=== PATIENT | male | born 1980 | race Caucasian/White ===

== ENCOUNTER 2020-02-22 09:30 | Inpatient (IN) | payer OTHER, SELFPAY ==
[~2020-02-22] VITALS: Ht 172.7 cm; Wt 87.1 kg
[2020-02-22 09:30] VITALS: BP_SYST 139
[2020-02-22 11:09] LABS: BASOPHILS % (AUTO) 0.3 % (0.0-2.0); HEMATOCRIT 41.6 % (36-54); HEMOGLOBIN 14.3 g/dL (14.0-18.0); LYMPHOCYTES # (AUTO) 0.2 K/uL (1.0-5.5); LYMPHOCYTES % (AUTO) 2.4 % (20.5-51.5); MEAN CORPUSCULAR HEMOGLOBIN 33 pg (27-31); MEAN CORPUSCULAR HGB CONC 35 % (32-36); MEAN CORPUSCULAR VOLUME 96 fL (79.0-98.0); MONOCYTES # (AUTO) 0.2 K/uL (0.0-1.0); MONOCYTES % (AUTO) 2.3 % (1.7-9.3); NEUTROPHILS # (AUTO) 7.8 K/uL (1.8-7.7); PLATELET COUNT (AUTO) 143 K/uL (130-430); RED BLOOD CELL COUNT(AUTO) 4.31 MIL/uL (4.2-6.2); RED CELL DISTRIBUTION WIDTH 12.9 % (9.0-15.0); WHITE BLOOD COUNT (AUTO) 8.2 K/uL (4.8-10.8)
[2020-02-22 11:20] LABS: BILIRUBIN,URINE NEGATIVE (NEGATIVE); BLOOD, URINE NEGATIVE (NEGATIVE); CLARITY/URINE CLEAR (CLEAR); COLOR,URINE YELLOW (YELLOW); GLUCOSE,URINE NEGATIVE (NEGATIVE); KETONES,URINE NEGATIVE (NEGATIVE); LEUKOCYTE ESTERASE ,URINE NEGATIVE (NEGATIVE); NITRITE, URINE NEGATIVE (NEGATIVE); PROTEIN URINE 1+ (NEGATIVE)
[2020-02-22 11:31] LABS: PROTHROMBIN TIME 9.9 SECS (9.5-12.5)
[2020-02-22 11:51] LABS: CALCIUM 8.4 mg/dL (8.4-11.0); CREATININE 1.06 mg/dL (0.55-1.30); POTASSIUM 3.1 mmol/L (3.5-5.1)
[2020-02-22 11:57] LABS: ALBUMIN 3.4 g/dL (3.4-4.8); TOTAL BILIRUBIN 0.6 mg/dL (0.0-1.0)
[2020-02-22 12:31] LABS: C-REACTIVE PROTEIN QUANT 33.2 mg/dL (0-0.5)
[2020-02-22 13:20] LABS: BACTERIA,URINE FEW /HPF (None Seen); RBC,URINE 0-3 /HPF (0-3); WBC,URINE 0-3 /HPF (0-3)
[2020-02-22] MEDS ORDERED: KCL 20 mEq in D5/0.45NS 1000mL 1,000 ML IV ONE (16:00)
[2020-02-22] MEDS ORDERED: CHOLECALCIFEROL (VITAMIN D3) 5,000 UNIT TABLET PO ONE (19:45)
[2020-02-22] MEDS ORDERED: PIPERACILLIN/TAZO 4.5GM/DEX-IS 100 ML IV ONE (19:45)
[2020-02-22] MEDS ORDERED: THIAMINE HCL 100 MG TABLET GT ONE (19:45)
[2020-02-22 20:00] VITALS: BP_SYST 152
[2020-02-22] MEDS ORDERED: THIAMINE HCL 100 MG TABLET PO ONE (20:00)
[2020-02-22] MEDS ORDERED: ENOXAPARIN SODIUM 40 MG/0.4 ML SYRINGE SUBCUT SCH (21:00)
[2020-02-22] MEDS: KCL 20 mEq in NS 1000 mL 1,000 ML IV SCH (21:20)
[2020-02-22] MEDS: ASCORBIC ACID 500 MG TABLET PO SCH (21:21)
[2020-02-22] MEDS: DEXAMETHASONE SOD PHOSPHATE 10 MG/ML VIAL IVP SCH (21:22)
[2020-02-22] MEDS: ACETAMINOPHEN 325 MG TABLET PO PRN (21:35)
[2020-02-22 21:47] VITALS: BP_SYST 152
[2020-02-23] VITALS: BP_SYST 140
[2020-02-23] MEDS ORDERED: PIPERACILLIN/TAZO 4.5GM/DEX-IS 100 ML IV SCH (06:00)
[2020-02-23] MEDS: KCL 20 mEq in NS 1000 mL 1,000 ML IV SCH (06:30)
[2020-02-23 07:12] LABS: BASOPHILS % (AUTO) 0.1 % (0.0-2.0); HEMOGLOBIN 13.8 g/dL (14.0-18.0); LYMPHOCYTES # (AUTO) 0.3 K/uL (1.0-5.5); LYMPHOCYTES % (AUTO) 6.3 % (20.5-51.5); MEAN CORPUSCULAR HEMOGLOBIN 33 pg (27-31); MEAN CORPUSCULAR HGB CONC 35 % (32-36); MEAN CORPUSCULAR VOLUME 96 fL (79.0-98.0); MONOCYTES # (AUTO) 0.2 K/uL (0.0-1.0); MONOCYTES % (AUTO) 4.7 % (1.7-9.3); NEUTROPHILS # (AUTO) 4.6 K/uL (1.8-7.7); NEUTROPHILS % (AUTO) 88.9 % (40.0-70.0); PLATELET COUNT (AUTO) 151 K/uL (130-430); RED BLOOD CELL COUNT(AUTO) 4.18 MIL/uL (4.2-6.2); RED CELL DISTRIBUTION WIDTH 12.8 % (9.0-15.0); WHITE BLOOD COUNT (AUTO) 5.1 K/uL (4.8-10.8)
[2020-02-23 08:00] VITALS: BP_SYST 155
[2020-02-23 08:15] LABS: CALCIUM 8.6 mg/dL (8.4-11.0); CREATININE 0.72 mg/dL (0.55-1.30); POTASSIUM 3.9 mmol/L (3.5-5.1)
[2020-02-23] MEDS: THIAMINE HCL 100 MG TABLET PO SCH (08:37)
[2020-02-23] MEDS: CHOLECALCIFEROL (VITAMIN D3) 5,000 UNIT TABLET PO SCH (08:38)
[2020-02-23] MEDS: ASCORBIC ACID 500 MG TABLET PO SCH ×2 (08:38→21:18)
[2020-02-23] MEDS: ACETAMINOPHEN 325 MG TABLET PO PRN ×2 (08:52→21:31)
[2020-02-23] MEDS ORDERED: THIAMINE HCL 100 MG TABLET GT SCH (09:00)
[2020-02-23 12:00] VITALS: BP_SYST 146
[2020-02-23] MEDS ORDERED: ALBUTEROL MDI INHALATION 8 GM INH INH PRN (14:30)
[2020-02-23 16:00] VITALS: BP_SYST 150
[2020-02-23] MEDS ORDERED: ONDANSETRON HCL 4 MG/2 ML VIAL IVP PRN (19:30)
[2020-02-23 20:00] VITALS: BP_SYST 149
[2020-02-23] MEDS: DEXAMETHASONE SOD PHOSPHATE 10 MG/ML VIAL IVP SCH (21:19)
[2020-02-23] MEDS: DOXYCYCLINE HYCLATE 100 MG CAPSULE PO SCH (21:19)
[2020-02-23] MEDS: ENOXAPARIN SODIUM 40 MG/0.4 ML SYRINGE SUBCUT SCH (21:27)
[2020-02-23] MEDS: cefTRIAXone 1 GM in D5W 50 ML IV SCH (21:34)
[2020-02-24] VITALS: BP_SYST 148
[2020-02-24] MEDS: KCL 20 mEq in NS 1000 mL 1,000 ML IV SCH ×4 (01:49→23:05)
[2020-02-24] MEDS: ACETAMINOPHEN 325 MG TABLET PO PRN ×3 (02:30→20:56)
[2020-02-24] MEDS: THIAMINE HCL 100 MG TABLET PO SCH (08:16)
[2020-02-24] MEDS: CHOLECALCIFEROL (VITAMIN D3) 5,000 UNIT TABLET PO SCH (08:17)
[2020-02-24] MEDS: ASCORBIC ACID 500 MG TABLET PO SCH ×2 (08:18→20:12)
[2020-02-24] MEDS: ENOXAPARIN SODIUM 40 MG/0.4 ML SYRINGE SUBCUT SCH ×2 (08:19→20:14)
[2020-02-24] MEDS: DOXYCYCLINE HYCLATE 100 MG CAPSULE PO SCH ×2 (08:29→20:11)
[2020-02-24 08:43] VITALS: BP_SYST 142
[2020-02-24 08:43] LABS: BASOPHILS % (AUTO) 0.1 % (0.0-2.0); HEMATOCRIT 42.7 % (36-54); HEMOGLOBIN 14.8 g/dL (14.0-18.0); LYMPHOCYTES # (AUTO) 0.3 K/uL (1.0-5.5); LYMPHOCYTES % (AUTO) 3.6 % (20.5-51.5); MEAN CORPUSCULAR HEMOGLOBIN 33 pg (27-31); MEAN CORPUSCULAR HGB CONC 35 % (32-36); MEAN CORPUSCULAR VOLUME 95 fL (79.0-98.0); MONOCYTES # (AUTO) 0.6 K/uL (0.0-1.0); MONOCYTES % (AUTO) 6.6 % (1.7-9.3); NEUTROPHILS # (AUTO) 8.1 K/uL (1.8-7.7); NEUTROPHILS % (AUTO) 89.7 % (40.0-70.0); PLATELET COUNT (AUTO) 168 K/uL (130-430); RED BLOOD CELL COUNT(AUTO) 4.47 MIL/uL (4.2-6.2); RED CELL DISTRIBUTION WIDTH 12.5 % (9.0-15.0)
[2020-02-24 09:34] LABS: ALBUMIN 2.6 g/dL (3.4-4.8); BILIRUBIN,DIRECT 0.2 mg/dL (0.0-0.3); CALCIUM 8.7 mg/dL (8.4-11.0); CREATININE 0.74 mg/dL (0.55-1.30); POTASSIUM 3.9 mmol/L (3.5-5.1); TOTAL BILIRUBIN 0.3 mg/dL (0.0-1.0)
[2020-02-24 10:32] LABS: C-REACTIVE PROTEIN QUANT 14.1 mg/dL (0-0.5)
[2020-02-24 12:12] VITALS: BP_SYST 145
[2020-02-24 16:08] VITALS: BP_SYST 142
[2020-02-24] MEDS: DEXAMETHASONE SOD PHOSPHATE 10 MG/ML VIAL IVP SCH (20:11)
[2020-02-24] MEDS: cefTRIAXone 1 GM in D5W 50 ML IV SCH (20:11)
[2020-02-24 21:00] VITALS: BP_SYST 161
[2020-02-24] MEDS ORDERED: LORazepam 2 MG/ML VIAL ONE (21:30)
[2020-02-24] MEDS ORDERED: LORazepam 2 MG/ML VIAL IVP ONE (21:30)
[2020-02-24] MEDS ORDERED: LOSARTAN POTASSIUM 50 MG TABLET (COZAAR) PO ONE (21:30)
[2020-02-25 00:28] VITALS: BP_SYST 150
[2020-02-25] MEDS: KCL 20 mEq in NS 1000 mL 1,000 ML IV SCH ×3 (01:22→17:33)
[2020-02-25] MEDS: LOSARTAN POTASSIUM 50 MG TABLET (COZAAR) PO SCH ×2 (08:33→21:00)
[2020-02-25] MEDS: CHOLECALCIFEROL (VITAMIN D3) 5,000 UNIT TABLET PO SCH (08:33)
[2020-02-25] MEDS: THIAMINE HCL 100 MG TABLET PO SCH (08:33)
[2020-02-25] MEDS: DOXYCYCLINE HYCLATE 100 MG CAPSULE PO SCH ×2 (08:34→21:00)
[2020-02-25] MEDS: ENOXAPARIN SODIUM 40 MG/0.4 ML SYRINGE SUBCUT SCH ×2 (08:35→21:00)
[2020-02-25] MEDS: ASCORBIC ACID 500 MG TABLET PO SCH ×2 (08:37→21:00)
[2020-02-25 09:07] VITALS: BP_SYST 153
[2020-02-25] MEDS: ACETAMINOPHEN 325 MG TABLET PO PRN ×2 (09:19→21:00)
[2020-02-25 10:37] LABS: ALBUMIN 2.4 g/dL (3.4-4.8); BILIRUBIN,DIRECT 0.2 mg/dL (0.0-0.3); TOTAL BILIRUBIN 0.5 mg/dL (0.0-1.0)
[2020-02-25 11:36] LABS: C-REACTIVE PROTEIN QUANT 12.8 mg/dL (0-0.5)
[2020-02-25 11:47] VITALS: BP_SYST 152
[2020-02-25 16:01] VITALS: BP_SYST 150
[2020-02-25] MEDS: amLODIPine BESYLATE 10 MG TABLET PO SCH (18:45)
[2020-02-25] MEDS: DEXAMETHASONE SOD PHOSPHATE 10 MG/ML VIAL IVP SCH (19:30)
[2020-02-25 19:45] VITALS: BP_SYST 151
[2020-02-25] MEDS: ALBUTEROL MDI INHALATION 8 GM INH INH PRN (20:30)
[2020-02-25] MEDS: cefTRIAXone 1 GM in D5W 50 ML IV SCH (21:00)
[2020-02-25] MEDS: chlordiazePOXIDE HCL 25 MG CAPSULE PO PRN ×2 (21:10→23:49)
[2020-02-26] VITALS (7 sets, daily range): BP systolic 132–153
[2020-02-26] MEDS: ALBUTEROL MDI INHALATION 8 GM INH INH PRN ×2 (01:30→13:16)
[2020-02-26] MEDS: amLODIPine BESYLATE 10 MG TABLET PO SCH (09:00)
[2020-02-26] MEDS: THIAMINE HCL 100 MG TABLET PO SCH (09:01)
[2020-02-26] MEDS: ASCORBIC ACID 500 MG TABLET PO SCH ×2 (09:02→22:49)
[2020-02-26] MEDS: DOXYCYCLINE HYCLATE 100 MG CAPSULE PO SCH ×2 (09:02→22:49)
[2020-02-26] MEDS: CHOLECALCIFEROL (VITAMIN D3) 5,000 UNIT TABLET PO SCH (09:02)
[2020-02-26] MEDS: LOSARTAN POTASSIUM 50 MG TABLET (COZAAR) PO SCH ×2 (09:03→22:49)
[2020-02-26] MEDS: ENOXAPARIN SODIUM 40 MG/0.4 ML SYRINGE SUBCUT SCH ×2 (09:07→22:48)
[2020-02-26 09:08] LABS: ALBUMIN 2.5 g/dL (3.4-4.8); CALCIUM 8.7 mg/dL (8.4-11.0); CREATININE 0.71 mg/dL (0.55-1.30); POTASSIUM 4.4 mmol/L (3.5-5.1); TOTAL BILIRUBIN 0.5 mg/dL (0.0-1.0)
[2020-02-26] MEDS: KCL 20 mEq in NS 1000 mL 1,000 ML IV SCH ×2 (11:43→23:05)
[2020-02-26] MEDS: ACETAMINOPHEN 325 MG TABLET PO PRN (15:07)
[2020-02-26] MEDS: DEXAMETHASONE SOD PHOSPHATE 10 MG/ML VIAL IVP SCH (18:57)
[2020-02-26] MEDS: chlordiazePOXIDE HCL 25 MG CAPSULE PO PRN (22:49)
[2020-02-26] MEDS: cefTRIAXone 1 GM in D5W 50 ML IV SCH (22:50)
[2020-02-27 07:38] LABS: ALBUMIN 2.4 g/dL (3.4-4.8); BILIRUBIN,DIRECT 0.2 mg/dL (0.0-0.3); TOTAL BILIRUBIN 0.4 mg/dL (0.0-1.0)
[2020-02-27 07:39] LABS: BASOPHILS % (AUTO) 0.2 % (0.0-2.0); HEMOGLOBIN 15.5 g/dL (14.0-18.0); LYMPHOCYTES # (AUTO) 0.5 K/uL (1.0-5.5); LYMPHOCYTES % (AUTO) 5.4 % (20.5-51.5); MEAN CORPUSCULAR HEMOGLOBIN 33 pg (27-31); MEAN CORPUSCULAR HGB CONC 35 % (32-36); MEAN CORPUSCULAR VOLUME 96 fL (79.0-98.0); MONOCYTES # (AUTO) 0.6 K/uL (0.0-1.0); MONOCYTES % (AUTO) 5.7 % (1.7-9.3); NEUTROPHILS # (AUTO) 8.8 K/uL (1.8-7.7); NEUTROPHILS % (AUTO) 88.7 % (40.0-70.0); PLATELET COUNT (AUTO) 287 K/uL (130-430); RED BLOOD CELL COUNT(AUTO) 4.71 MIL/uL (4.2-6.2); RED CELL DISTRIBUTION WIDTH 13.1 % (9.0-15.0); WHITE BLOOD COUNT (AUTO) 9.9 K/uL (4.8-10.8)
[2020-02-27 08:00] VITALS: BP_SYST 141
[2020-02-27] MEDS: THIAMINE HCL 100 MG TABLET PO SCH (09:58)
[2020-02-27] MEDS: CHOLECALCIFEROL (VITAMIN D3) 5,000 UNIT TABLET PO SCH (09:59)
[2020-02-27] MEDS: DOXYCYCLINE HYCLATE 100 MG CAPSULE PO SCH ×2 (09:59→23:02)
[2020-02-27] MEDS: ASCORBIC ACID 500 MG TABLET PO SCH ×2 (09:59→23:02)
[2020-02-27] MEDS: LOSARTAN POTASSIUM 50 MG TABLET (COZAAR) PO SCH ×2 (10:00→23:02)
[2020-02-27] MEDS: ENOXAPARIN SODIUM 40 MG/0.4 ML SYRINGE SUBCUT SCH ×2 (10:01→23:03)
[2020-02-27 10:04] LABS: C-REACTIVE PROTEIN QUANT 5.8 mg/dL (0-0.5)
[2020-02-27] MEDS ORDERED: amLODIPine BESYLATE 10 MG TABLET ONE (10:11)
[2020-02-27] MEDS: amLODIPine BESYLATE 10 MG TABLET PO SCH (10:15)
[2020-02-27] MEDS: KCL 20 mEq in NS 1000 mL 1,000 ML IV SCH ×2 (10:18→20:05)
[2020-02-27 12:05] VITALS: BP_SYST 143
[2020-02-27 16:00] VITALS: BP_SYST 141
[2020-02-27] MEDS: DEXAMETHASONE SOD PHOSPHATE 10 MG/ML VIAL IVP SCH (19:45)
[2020-02-27] MEDS: cefTRIAXone 1 GM in D5W 50 ML IV SCH (20:05)
[2020-02-27 20:30] VITALS: BP_SYST 128
[2020-02-27] MEDS: chlordiazePOXIDE HCL 25 MG CAPSULE PO PRN (23:02)
[2020-02-28 00:30] VITALS: BP_SYST 120
[2020-02-28] MEDS: KCL 20 mEq in NS 1000 mL 1,000 ML IV SCH ×2 (05:20→15:59)
[2020-02-28] MEDS ORDERED: amLODIPine BESYLATE 10 MG TABLET ONE (07:49)
[2020-02-28 08:00] VITALS: BP_SYST 123
[2020-02-28 08:09] LABS: ALBUMIN 2.6 g/dL (3.4-4.8); BILIRUBIN,DIRECT 0.1 mg/dL (0.0-0.3); TOTAL BILIRUBIN 0.4 mg/dL (0.0-1.0)
[2020-02-28 09:57] LABS: C-REACTIVE PROTEIN QUANT 4.1 mg/dL (0-0.5)
[2020-02-28] MEDS: DOXYCYCLINE HYCLATE 100 MG CAPSULE PO SCH ×2 (10:01→21:23)
[2020-02-28] MEDS: ASCORBIC ACID 500 MG TABLET PO SCH ×2 (10:01→21:23)
[2020-02-28] MEDS: CHOLECALCIFEROL (VITAMIN D3) 5,000 UNIT TABLET PO SCH (10:01)
[2020-02-28] MEDS: THIAMINE HCL 100 MG TABLET PO SCH (10:01)
[2020-02-28] MEDS: LOSARTAN POTASSIUM 50 MG TABLET (COZAAR) PO SCH ×2 (10:02→21:43)
[2020-02-28] MEDS: amLODIPine BESYLATE 10 MG TABLET PO SCH (10:02)
[2020-02-28] MEDS: ENOXAPARIN SODIUM 40 MG/0.4 ML SYRINGE SUBCUT SCH ×2 (10:14→21:22)
[2020-02-28 13:45] VITALS: BP_SYST 131
[2020-02-28 16:00] VITALS: BP_SYST 139
[2020-02-28] MEDS: ALBUTEROL MDI INHALATION 8 GM INH INH PRN (16:25)
[2020-02-28] MEDS: DEXAMETHASONE SOD PHOSPHATE 10 MG/ML VIAL IVP SCH (18:42)
[2020-02-28 20:00] VITALS: BP_SYST 144
[2020-02-28] MEDS: DOCUSATE SODIUM 100 MG CAPSULE PO SCH (21:22)
[2020-02-28] MEDS: cefTRIAXone 1 GM in D5W 50 ML IV SCH (21:22)
[2020-02-29] VITALS: BP_SYST 115
[2020-02-29] MEDS: KCL 20 mEq in NS 1000 mL 1,000 ML IV SCH ×3 (01:09→21:37)
[2020-02-29 07:29] LABS: BASOPHILS % (AUTO) 0.2 % (0.0-2.0); HEMATOCRIT 45.8 % (36-54); HEMOGLOBIN 15.4 g/dL (14.0-18.0); LYMPHOCYTES # (AUTO) 0.2 K/uL (1.0-5.5); LYMPHOCYTES % (AUTO) 1.8 % (20.5-51.5); MEAN CORPUSCULAR HEMOGLOBIN 33 pg (27-31); MEAN CORPUSCULAR HGB CONC 34 % (32-36); MEAN CORPUSCULAR VOLUME 97 fL (79.0-98.0); MONOCYTES # (AUTO) 0.5 K/uL (0.0-1.0); MONOCYTES % (AUTO) 4.3 % (1.7-9.3); NEUTROPHILS # (AUTO) 11.8 K/uL (1.8-7.7); PLATELET COUNT (AUTO) 399 K/uL (130-430); RED BLOOD CELL COUNT(AUTO) 4.74 MIL/uL (4.2-6.2); RED CELL DISTRIBUTION WIDTH 13.2 % (9.0-15.0); WHITE BLOOD COUNT (AUTO) 12.6 K/uL (4.8-10.8)
[2020-02-29 07:52] LABS: CALCIUM 8.8 mg/dL (8.4-11.0); CREATININE 0.8 mg/dL (0.55-1.30); POTASSIUM 4.4 mmol/L (3.5-5.1)
[2020-02-29 08:00] VITALS: BP_SYST 132
[2020-02-29] MEDS: LOSARTAN POTASSIUM 50 MG TABLET (COZAAR) PO SCH ×2 (08:00→21:56)
[2020-02-29] MEDS: ASCORBIC ACID 500 MG TABLET PO SCH ×2 (08:00→21:34)
[2020-02-29] MEDS: THIAMINE HCL 100 MG TABLET PO SCH (08:00)
[2020-02-29] MEDS: DOCUSATE SODIUM 100 MG CAPSULE PO SCH ×2 (08:00→21:34)
[2020-02-29] MEDS: DOXYCYCLINE HYCLATE 100 MG CAPSULE PO SCH ×2 (08:00→21:34)
[2020-02-29] MEDS: amLODIPine BESYLATE 10 MG TABLET PO SCH (08:00)
[2020-02-29] MEDS: CHOLECALCIFEROL (VITAMIN D3) 5,000 UNIT TABLET PO SCH (08:00)
[2020-02-29] MEDS: ENOXAPARIN SODIUM 40 MG/0.4 ML SYRINGE SUBCUT SCH ×2 (08:00→21:36)
[2020-02-29 11:42] LABS: NEUTROPHILS % (AUTO) 93.7 % (40.0-70.0)
[2020-02-29 11:55] VITALS: BP_SYST 107
[2020-02-29 16:05] VITALS: BP_SYST 123
[2020-02-29 20:00] VITALS: BP_SYST 144
[2020-02-29] MEDS: cefTRIAXone 1 GM in D5W 50 ML IV SCH (21:35)
[2020-03-01] VITALS: BP_SYST 133
[2020-03-01] MEDS: chlordiazePOXIDE HCL 25 MG CAPSULE PO PRN ×2 (00:49→22:59)
[2020-03-01] MEDS: ACETAMINOPHEN 325 MG TABLET PO PRN ×3 (00:56→22:59)
[2020-03-01 08:45] VITALS: BP_SYST 114
[2020-03-01] MEDS: amLODIPine BESYLATE 10 MG TABLET PO SCH (08:45)
[2020-03-01] MEDS: DOCUSATE SODIUM 100 MG CAPSULE PO SCH ×2 (08:45→21:49)
[2020-03-01] MEDS: CHOLECALCIFEROL (VITAMIN D3) 5,000 UNIT TABLET PO SCH (08:45)
[2020-03-01] MEDS: DOXYCYCLINE HYCLATE 100 MG CAPSULE PO SCH (08:45)
[2020-03-01] MEDS: ASCORBIC ACID 500 MG TABLET PO SCH ×2 (08:45→21:49)
[2020-03-01] MEDS: KCL 20 mEq in NS 1000 mL 1,000 ML IV SCH ×2 (08:45→10:18)
[2020-03-01] MEDS: THIAMINE HCL 100 MG TABLET PO SCH (08:45)
[2020-03-01] MEDS: ENOXAPARIN SODIUM 40 MG/0.4 ML SYRINGE SUBCUT SCH ×2 (08:45→21:48)
[2020-03-01] MEDS: LOSARTAN POTASSIUM 50 MG TABLET (COZAAR) PO SCH ×2 (08:45→21:55)
[2020-03-01 09:06] LABS: BASOPHILS % (AUTO) 0.1 % (0.0-2.0); EOSINOPHILS # (AUTO) 0.1 K/uL (0.0-0.4); EOSINOPHILS % (AUTO) 0.5 % (0.0-4.0); HEMATOCRIT 44.2 % (36-54); LYMPHOCYTES # (AUTO) 0.4 K/uL (1.0-5.5); LYMPHOCYTES % (AUTO) 3.2 % (20.5-51.5); MEAN CORPUSCULAR HEMOGLOBIN 33 pg (27-31); MEAN CORPUSCULAR HGB CONC 34 % (32-36); MEAN CORPUSCULAR VOLUME 96 fL (79.0-98.0); MONOCYTES # (AUTO) 0.4 K/uL (0.0-1.0); MONOCYTES % (AUTO) 3.1 % (1.7-9.3); NEUTROPHILS # (AUTO) 12.8 K/uL (1.8-7.7); NEUTROPHILS % (AUTO) 93.1 % (40.0-70.0); PLATELET COUNT (AUTO) 411 K/uL (130-430); RED BLOOD CELL COUNT(AUTO) 4.59 MIL/uL (4.2-6.2); RED CELL DISTRIBUTION WIDTH 13.4 % (9.0-15.0); WHITE BLOOD COUNT (AUTO) 13.7 K/uL (4.8-10.8)
[2020-03-01 09:25] LABS: CALCIUM 8.5 mg/dL (8.4-11.0); CREATININE 0.74 mg/dL (0.55-1.30); POTASSIUM 4.6 mmol/L (3.5-5.1)
[2020-03-01 20:00] VITALS: BP_SYST 122
[2020-03-01] MEDS: methylPREDNISolone SOD SUCC 40 MG/ML VIAL IVP SCH (21:49)
[2020-03-01] MEDS ORDERED: PIPERACILLIN/TAZOBACTAM 4.5 GM/VIAL (ZOSYN) IV ONE (21:58)
[2020-03-01] MEDS: PIPERACILLIN/TAZO 4.5GM/DEX-IS 100 ML IV SCH (22:58)
[2020-03-01] MEDS: ALBUTEROL MDI INHALATION 8 GM INH INH PRN (22:59)
[2020-03-02] VITALS: BP_SYST 110
[2020-03-02] MEDS: ALBUTEROL MDI INHALATION 8 GM INH INH PRN (04:12)
[2020-03-02] MEDS ORDERED: PIPERACILLIN/TAZOBACTAM 4.5 GM/VIAL (ZOSYN) IV ONE (04:18)
[2020-03-02] MEDS: PIPERACILLIN/TAZO 4.5GM/DEX-IS 100 ML IV SCH ×3 (05:59→21:23)
[2020-03-02 08:00] VITALS: BP_SYST 124
[2020-03-02] MEDS: CHOLECALCIFEROL (VITAMIN D3) 5,000 UNIT TABLET PO SCH (10:06)
[2020-03-02] MEDS: THIAMINE HCL 100 MG TABLET PO SCH (10:06)
[2020-03-02] MEDS: DOCUSATE SODIUM 100 MG CAPSULE PO SCH ×2 (10:06→21:23)
[2020-03-02] MEDS: methylPREDNISolone SOD SUCC 40 MG/ML VIAL IVP SCH ×2 (10:07→21:23)
[2020-03-02] MEDS: ASCORBIC ACID 500 MG TABLET PO SCH ×2 (10:07→21:23)
[2020-03-02] MEDS: amLODIPine BESYLATE 10 MG TABLET PO SCH (10:07)
[2020-03-02] MEDS: LOSARTAN POTASSIUM 50 MG TABLET (COZAAR) PO SCH ×2 (10:07→21:24)
[2020-03-02] MEDS: ENOXAPARIN SODIUM 40 MG/0.4 ML SYRINGE SUBCUT SCH ×2 (10:15→21:47)
[2020-03-02 12:00] VITALS: BP_SYST 98
[2020-03-02 16:00] VITALS: BP_SYST 121
[2020-03-02 20:00] VITALS: BP_SYST 139
[2020-03-02] MEDS: chlordiazePOXIDE HCL 25 MG CAPSULE PO PRN (21:47)
[2020-03-03] VITALS: BP_SYST 109
[2020-03-03] MEDS: KCL 20 mEq in NS 1000 mL 1,000 ML IV SCH (05:10)
[2020-03-03] MEDS: PIPERACILLIN/TAZO 4.5GM/DEX-IS 100 ML IV SCH ×3 (05:10→23:28)
[2020-03-03 08:00] VITALS: BP_SYST 130
[2020-03-03 08:48] LABS: BASOPHILS # (AUTO) 0.1 K/uL (0.0-0.2); BASOPHILS % (AUTO) 0.4 % (0.0-2.0); HEMATOCRIT 41.6 % (36-54); HEMOGLOBIN 13.9 g/dL (14.0-18.0); LYMPHOCYTES # (AUTO) 0.3 K/uL (1.0-5.5); LYMPHOCYTES % (AUTO) 1.4 % (20.5-51.5); MEAN CORPUSCULAR HEMOGLOBIN 32 pg (27-31); MEAN CORPUSCULAR HGB CONC 33 % (32-36); MEAN CORPUSCULAR VOLUME 97 fL (79.0-98.0); MONOCYTES # (AUTO) 0.7 K/uL (0.0-1.0); MONOCYTES % (AUTO) 3.1 % (1.7-9.3); NEUTROPHILS # (AUTO) 19.9 K/uL (1.8-7.7); NEUTROPHILS % (AUTO) 95.1 % (40.0-70.0); PLATELET COUNT (AUTO) 416 K/uL (130-430); RED BLOOD CELL COUNT(AUTO) 4.29 MIL/uL (4.2-6.2); RED CELL DISTRIBUTION WIDTH 13.2 % (9.0-15.0); WHITE BLOOD COUNT (AUTO) 20.9 K/uL (4.8-10.8)
[2020-03-03] MEDS: DOCUSATE SODIUM 100 MG CAPSULE PO SCH ×2 (09:00→21:00)
[2020-03-03 09:59] LABS: CALCIUM 8.8 mg/dL (8.4-11.0); CREATININE 0.7 mg/dL (0.55-1.30); POTASSIUM 4.3 mmol/L (3.5-5.1); TOTAL BILIRUBIN 0.5 mg/dL (0.0-1.0)
[2020-03-03] MEDS: LOSARTAN POTASSIUM 50 MG TABLET (COZAAR) PO SCH ×2 (10:23→21:00)
[2020-03-03] MEDS: THIAMINE HCL 100 MG TABLET PO SCH (10:23)
[2020-03-03] MEDS: amLODIPine BESYLATE 10 MG TABLET PO SCH (10:23)
[2020-03-03] MEDS: ASCORBIC ACID 500 MG TABLET PO SCH ×2 (10:23→21:00)
[2020-03-03] MEDS: methylPREDNISolone SOD SUCC 40 MG/ML VIAL IVP SCH ×2 (10:23→21:00)
[2020-03-03] MEDS: CHOLECALCIFEROL (VITAMIN D3) 5,000 UNIT TABLET PO SCH (10:23)
[2020-03-03] MEDS: ENOXAPARIN SODIUM 40 MG/0.4 ML SYRINGE SUBCUT SCH ×2 (10:24→21:00)
[2020-03-03 12:00] VITALS: BP_SYST 103
[2020-03-03 12:53] VITALS: BP_SYST 130
[2020-03-03 14:46] LABS: C-REACTIVE PROTEIN QUANT 16.6 mg/dL (0-0.5)
[2020-03-03 17:00] VITALS: BP_SYST 120
[2020-03-03 23:20] VITALS: BP_SYST 109
[2020-03-04] VITALS: BP_SYST 135
[2020-03-04] MEDS: KCL 20 mEq in NS 1000 mL 1,000 ML IV SCH (05:15)
[2020-03-04] MEDS: PIPERACILLIN/TAZO 4.5GM/DEX-IS 100 ML IV SCH ×3 (05:15→22:00)
[2020-03-04 06:53] LABS: BASOPHILS % (AUTO) 0.1 % (0.0-2.0); HEMATOCRIT 41.6 % (36-54); HEMOGLOBIN 14.1 g/dL (14.0-18.0); LYMPHOCYTES # (AUTO) 0.2 K/uL (1.0-5.5); LYMPHOCYTES % (AUTO) 1.6 % (20.5-51.5); MEAN CORPUSCULAR HEMOGLOBIN 33 pg (27-31); MEAN CORPUSCULAR HGB CONC 34 % (32-36); MEAN CORPUSCULAR VOLUME 97 fL (79.0-98.0); MONOCYTES # (AUTO) 0.4 K/uL (0.0-1.0); MONOCYTES % (AUTO) 2.4 % (1.7-9.3); NEUTROPHILS # (AUTO) 14.6 K/uL (1.8-7.7); NEUTROPHILS % (AUTO) 95.9 % (40.0-70.0); PLATELET COUNT (AUTO) 414 K/uL (130-430); RED BLOOD CELL COUNT(AUTO) 4.31 MIL/uL (4.2-6.2); WHITE BLOOD COUNT (AUTO) 15.2 K/uL (4.8-10.8)
[2020-03-04 08:00] VITALS: BP_SYST 122
[2020-03-04 08:05] LABS: CALCIUM 8.8 mg/dL (8.4-11.0); CREATININE 0.67 mg/dL (0.55-1.30); POTASSIUM 4.5 mmol/L (3.5-5.1); TOTAL BILIRUBIN 0.5 mg/dL (0.0-1.0)
[2020-03-04] MEDS: LOSARTAN POTASSIUM 50 MG TABLET (COZAAR) PO SCH ×2 (09:55→21:00)
[2020-03-04] MEDS: amLODIPine BESYLATE 10 MG TABLET PO SCH (09:55)
[2020-03-04] MEDS: THIAMINE HCL 100 MG TABLET PO SCH (09:55)
[2020-03-04] MEDS: methylPREDNISolone SOD SUCC 40 MG/ML VIAL IVP SCH ×2 (09:55→21:00)
[2020-03-04] MEDS: ASCORBIC ACID 500 MG TABLET PO SCH ×2 (09:55→21:00)
[2020-03-04] MEDS: CHOLECALCIFEROL (VITAMIN D3) 5,000 UNIT TABLET PO SCH (09:55)
[2020-03-04] MEDS: DOCUSATE SODIUM 100 MG CAPSULE PO SCH ×2 (09:55→21:00)
[2020-03-04] MEDS: ENOXAPARIN SODIUM 40 MG/0.4 ML SYRINGE SUBCUT SCH ×2 (09:56→21:00)
[2020-03-04 11:33] VITALS: BP_SYST 128
[2020-03-04 15:10] VITALS: BP_SYST 111
[2020-03-04 20:00] VITALS: BP_SYST 130
[2020-03-05 00:01] VITALS: BP_SYST 139
[2020-03-05] MEDS: PIPERACILLIN/TAZO 4.5GM/DEX-IS 100 ML IV SCH ×3 (06:20→23:00)
[2020-03-05 08:00] VITALS: BP_SYST 106
[2020-03-05] MEDS: KCL 20 mEq in NS 1000 mL 1,000 ML IV SCH (08:00)
[2020-03-05] MEDS: BUDESONIDE 0.5 MG/2 ML AMPUL.NEB INH SCH (09:00)
[2020-03-05] MEDS: methylPREDNISolone SOD SUCC 40 MG/ML VIAL IVP SCH ×2 (10:11→21:45)
[2020-03-05] MEDS: DOCUSATE SODIUM 100 MG CAPSULE PO SCH ×2 (10:11→21:45)
[2020-03-05] MEDS: LOSARTAN POTASSIUM 50 MG TABLET (COZAAR) PO SCH ×2 (10:13→21:45)
[2020-03-05] MEDS: THIAMINE HCL 100 MG TABLET PO SCH (10:14)
[2020-03-05] MEDS: ENOXAPARIN SODIUM 40 MG/0.4 ML SYRINGE SUBCUT SCH ×2 (10:14→21:45)
[2020-03-05] MEDS: CHOLECALCIFEROL (VITAMIN D3) 5,000 UNIT TABLET PO SCH (10:14)
[2020-03-05] MEDS: amLODIPine BESYLATE 10 MG TABLET PO SCH (10:14)
[2020-03-05] MEDS: ASCORBIC ACID 500 MG TABLET PO SCH ×2 (10:14→21:45)
[2020-03-05 11:34] VITALS: BP_SYST 98
[2020-03-05] MEDS: ALBUTEROL MDI INHALATION 8 GM INH INH PRN (14:31)
[2020-03-05 16:12] VITALS: BP_SYST 125
[2020-03-05 21:45] VITALS: BP_SYST 122
[2020-03-06] VITALS: BP_SYST 118
[2020-03-06] MEDS: PIPERACILLIN/TAZO 4.5GM/DEX-IS 100 ML IV SCH ×3 (05:00→21:10)
[2020-03-06 06:36] LABS: BASOPHILS % (AUTO) 0.4 % (0.0-2.0); EOSINOPHILS % (AUTO) 0.1 % (0.0-4.0); HEMATOCRIT 42.3 % (36-54); HEMOGLOBIN 14.4 g/dL (14.0-18.0); LYMPHOCYTES # (AUTO) 0.3 K/uL (1.0-5.5); LYMPHOCYTES % (AUTO) 2.6 % (20.5-51.5); MEAN CORPUSCULAR HEMOGLOBIN 33 pg (27-31); MEAN CORPUSCULAR HGB CONC 34 % (32-36); MEAN CORPUSCULAR VOLUME 96 fL (79.0-98.0); MONOCYTES # (AUTO) 0.5 K/uL (0.0-1.0); MONOCYTES % (AUTO) 4.5 % (1.7-9.3); NEUTROPHILS # (AUTO) 10.3 K/uL (1.8-7.7); NEUTROPHILS % (AUTO) 92.4 % (40.0-70.0); PLATELET COUNT (AUTO) 404 K/uL (130-430); RED BLOOD CELL COUNT(AUTO) 4.38 MIL/uL (4.2-6.2); WHITE BLOOD COUNT (AUTO) 11.2 K/uL (4.8-10.8)
[2020-03-06 07:20] LABS: CALCIUM 8.8 mg/dL (8.4-11.0); CREATININE 0.84 mg/dL (0.55-1.30)
[2020-03-06 08:00] VITALS: BP_SYST 105
[2020-03-06] MEDS: KCL 20 mEq in NS 1000 mL 1,000 ML IV SCH (08:00)
[2020-03-06] MEDS: CHOLECALCIFEROL (VITAMIN D3) 5,000 UNIT TABLET PO SCH (08:52)
[2020-03-06] MEDS: THIAMINE HCL 100 MG TABLET PO SCH (08:52)
[2020-03-06] MEDS: DOCUSATE SODIUM 100 MG CAPSULE PO SCH ×2 (08:52→21:10)
[2020-03-06] MEDS: LOSARTAN POTASSIUM 50 MG TABLET (COZAAR) PO SCH ×2 (08:52→21:10)
[2020-03-06] MEDS: ENOXAPARIN SODIUM 40 MG/0.4 ML SYRINGE SUBCUT SCH ×2 (08:52→21:10)
[2020-03-06] MEDS: amLODIPine BESYLATE 10 MG TABLET PO SCH (08:52)
[2020-03-06] MEDS: ASCORBIC ACID 500 MG TABLET PO SCH ×2 (08:52→21:10)
[2020-03-06] MEDS: methylPREDNISolone SOD SUCC 40 MG/ML VIAL IVP SCH ×2 (08:52→21:10)
[2020-03-06 10:41] VITALS: BP_SYST 105
[2020-03-06 11:06] LABS: C-REACTIVE PROTEIN QUANT 3.1 mg/dL (0-0.5)
[2020-03-06 11:12] VITALS: BP_SYST 108
[2020-03-06 15:36] VITALS: BP_SYST 100
[2020-03-06] MEDS: BUDESONIDE 0.5 MG/2 ML AMPUL.NEB INH SCH (19:49)
[2020-03-06 20:00] VITALS: BP_SYST 110
[2020-03-06] MEDS: ZOLPIDEM TARTRATE 5 MG TABLET PO PRN (23:15)
[2020-03-07] VITALS: BP_SYST 103
[2020-03-07] MEDS: PIPERACILLIN/TAZO 4.5GM/DEX-IS 100 ML IV SCH ×3 (05:25→22:00)
[2020-03-07] MEDS: BUDESONIDE 0.5 MG/2 ML AMPUL.NEB INH SCH ×2 (07:36→20:26)
[2020-03-07] MEDS: KCL 20 mEq in NS 1000 mL 1,000 ML IV SCH (08:00)
[2020-03-07 08:50] VITALS: BP_SYST 94
[2020-03-07] MEDS: amLODIPine BESYLATE 10 MG TABLET PO SCH (09:00)
[2020-03-07] MEDS: LOSARTAN POTASSIUM 50 MG TABLET (COZAAR) PO SCH ×2 (09:00→21:00)
[2020-03-07] MEDS: ENOXAPARIN SODIUM 40 MG/0.4 ML SYRINGE SUBCUT SCH ×2 (10:13→21:00)
[2020-03-07] MEDS: ASCORBIC ACID 500 MG TABLET PO SCH ×2 (10:14→21:00)
[2020-03-07] MEDS: THIAMINE HCL 100 MG TABLET PO SCH (10:14)
[2020-03-07] MEDS: CHOLECALCIFEROL (VITAMIN D3) 5,000 UNIT TABLET PO SCH (10:14)
[2020-03-07] MEDS: DOCUSATE SODIUM 100 MG CAPSULE PO SCH ×2 (10:14→21:00)
[2020-03-07] MEDS: methylPREDNISolone SOD SUCC 40 MG/ML VIAL IVP SCH ×2 (10:16→21:00)
[2020-03-07 11:22] VITALS: BP_SYST 92
[2020-03-07 15:18] VITALS: BP_SYST 114
[2020-03-07 20:00] VITALS: BP_SYST 118
[2020-03-07] MEDS: ZOLPIDEM TARTRATE 5 MG TABLET PO PRN (23:30)
[2020-03-08] VITALS: BP_SYST 110
[2020-03-08] MEDS: PIPERACILLIN/TAZO 4.5GM/DEX-IS 100 ML IV SCH ×3 (06:00→21:50)
[2020-03-08 07:40] VITALS: BP_SYST 114
[2020-03-08] MEDS: KCL 20 mEq in NS 1000 mL 1,000 ML IV SCH (08:53)
[2020-03-08] MEDS: methylPREDNISolone SOD SUCC 40 MG/ML VIAL IVP SCH ×2 (08:54→21:50)
[2020-03-08] MEDS: ASCORBIC ACID 500 MG TABLET PO SCH ×2 (08:54→21:50)
[2020-03-08] MEDS: THIAMINE HCL 100 MG TABLET PO SCH (08:54)
[2020-03-08] MEDS: DOCUSATE SODIUM 100 MG CAPSULE PO SCH ×2 (08:55→21:50)
[2020-03-08] MEDS: CHOLECALCIFEROL (VITAMIN D3) 5,000 UNIT TABLET PO SCH (08:55)
[2020-03-08] MEDS: ENOXAPARIN SODIUM 40 MG/0.4 ML SYRINGE SUBCUT SCH ×2 (09:00→21:50)
[2020-03-08] MEDS: BUDESONIDE 0.5 MG/2 ML AMPUL.NEB INH SCH (09:00)
[2020-03-08] MEDS: amLODIPine BESYLATE 10 MG TABLET PO SCH (09:19)
[2020-03-08] MEDS: LOSARTAN POTASSIUM 50 MG TABLET (COZAAR) PO SCH ×2 (09:19→21:50)
[2020-03-08 12:00] VITALS: BP_SYST 107
[2020-03-08 16:00] VITALS: BP_SYST 111
[2020-03-08 20:00] VITALS: BP_SYST 118
[2020-03-08] MEDS ORDERED: PIPERACILLIN/TAZOBACTAM 4.5 GM/VIAL (ZOSYN) IV ONE (20:26)
[2020-03-09] VITALS: BP_SYST 112
[2020-03-09] MEDS: PIPERACILLIN/TAZO 4.5GM/DEX-IS 100 ML IV SCH ×2 (06:29→15:11)
[2020-03-09 07:02] VITALS: BP_SYST 112
[2020-03-09 07:50] VITALS: BP_SYST 112
[2020-03-09] MEDS: THIAMINE HCL 100 MG TABLET PO SCH (09:00)
[2020-03-09] MEDS: LOSARTAN POTASSIUM 50 MG TABLET (COZAAR) PO SCH ×2 (09:00→20:51)
[2020-03-09] MEDS: ENOXAPARIN SODIUM 40 MG/0.4 ML SYRINGE SUBCUT SCH ×2 (09:00→20:37)
[2020-03-09] MEDS: amLODIPine BESYLATE 10 MG TABLET PO SCH (09:00)
[2020-03-09] MEDS: DOCUSATE SODIUM 100 MG CAPSULE PO SCH ×2 (09:00→20:52)
[2020-03-09] MEDS: KCL 20 mEq in NS 1000 mL 1,000 ML IV SCH (09:00)
[2020-03-09] MEDS: methylPREDNISolone SOD SUCC 40 MG/ML VIAL IVP SCH ×2 (09:00→20:37)
[2020-03-09] MEDS: ASCORBIC ACID 500 MG TABLET PO SCH ×2 (09:00→20:37)
[2020-03-09] MEDS: CHOLECALCIFEROL (VITAMIN D3) 5,000 UNIT TABLET PO SCH (09:00)
[2020-03-09 12:00] VITALS: BP_SYST 108
[2020-03-09 16:00] VITALS: BP_SYST 110
[2020-03-09 20:00] VITALS: BP_SYST 103
[2020-03-09] MEDS: ALBUTEROL MDI INHALATION 8 GM INH INH PRN (20:33)
[2020-03-10] VITALS: BP_SYST 108
[2020-03-10] MEDS: ALBUTEROL MDI INHALATION 8 GM INH INH PRN (02:44)
[2020-03-10 07:40] VITALS: BP_SYST 124
[2020-03-10] MEDS: KCL 20 mEq in NS 1000 mL 1,000 ML IV SCH (08:25)
[2020-03-10] MEDS: CHOLECALCIFEROL (VITAMIN D3) 5,000 UNIT TABLET PO SCH (08:26)
[2020-03-10] MEDS: THIAMINE HCL 100 MG TABLET PO SCH (08:26)
[2020-03-10] MEDS: methylPREDNISolone SOD SUCC 40 MG/ML VIAL IVP SCH ×2 (08:26→21:57)
[2020-03-10] MEDS: LOSARTAN POTASSIUM 50 MG TABLET (COZAAR) PO SCH ×2 (08:26→21:58)
[2020-03-10] MEDS: DOCUSATE SODIUM 100 MG CAPSULE PO SCH ×2 (08:26→21:57)
[2020-03-10] MEDS: ASCORBIC ACID 500 MG TABLET PO SCH ×2 (08:26→21:57)
[2020-03-10] MEDS: ENOXAPARIN SODIUM 40 MG/0.4 ML SYRINGE SUBCUT SCH ×2 (08:28→22:04)
[2020-03-10] MEDS: amLODIPine BESYLATE 10 MG TABLET PO SCH (08:38)
[2020-03-10 08:56] LABS: BASOPHILS % (AUTO) 0.2 % (0.0-2.0); EOSINOPHILS # (AUTO) 0.2 K/uL (0.0-0.4); EOSINOPHILS % (AUTO) 1.2 % (0.0-4.0); HEMATOCRIT 44.7 % (36-54); HEMOGLOBIN 15.2 g/dL (14.0-18.0); LYMPHOCYTES # (AUTO) 0.7 K/uL (1.0-5.5); MEAN CORPUSCULAR HEMOGLOBIN 33 pg (27-31); MEAN CORPUSCULAR HGB CONC 34 % (32-36); MEAN CORPUSCULAR VOLUME 96 fL (79.0-98.0); MONOCYTES # (AUTO) 0.6 K/uL (0.0-1.0); NEUTROPHILS # (AUTO) 12.5 K/uL (1.8-7.7); NEUTROPHILS % (AUTO) 89.6 % (40.0-70.0); PLATELET COUNT (AUTO) 359 K/uL (130-430); RED BLOOD CELL COUNT(AUTO) 4.65 MIL/uL (4.2-6.2); RED CELL DISTRIBUTION WIDTH 13.2 % (9.0-15.0); WHITE BLOOD COUNT (AUTO) 13.9 K/uL (4.8-10.8)
[2020-03-10] MEDS: BUDESONIDE 0.5 MG/2 ML AMPUL.NEB INH SCH ×2 (09:00→21:00)
[2020-03-10 12:00] VITALS: BP_SYST 114
[2020-03-10] MEDS: cefTRIAXone 1 GM in D5W 50 ML IV SCH (15:02)
[2020-03-10 16:13] VITALS: BP_SYST 108
[2020-03-10 21:44] VITALS: BP_SYST 118
[2020-03-11 02:52] VITALS: BP_SYST 112
[2020-03-11 08:00] VITALS: BP_SYST 113
[2020-03-11] MEDS: DOCUSATE SODIUM 100 MG CAPSULE PO SCH ×2 (10:00→21:00)
[2020-03-11] MEDS: CHOLECALCIFEROL (VITAMIN D3) 5,000 UNIT TABLET PO SCH (10:00)
[2020-03-11] MEDS: methylPREDNISolone SOD SUCC 40 MG/ML VIAL IVP SCH ×2 (10:00→21:00)
[2020-03-11] MEDS: ASCORBIC ACID 500 MG TABLET PO SCH ×2 (10:00→21:00)
[2020-03-11] MEDS: KCL 20 mEq in NS 1000 mL 1,000 ML IV SCH (10:00)
[2020-03-11] MEDS: THIAMINE HCL 100 MG TABLET PO SCH (10:00)
[2020-03-11] MEDS: LOSARTAN POTASSIUM 50 MG TABLET (COZAAR) PO SCH ×2 (10:00→21:00)
[2020-03-11] MEDS: ENOXAPARIN SODIUM 40 MG/0.4 ML SYRINGE SUBCUT SCH ×2 (10:00→21:00)
[2020-03-11] MEDS: amLODIPine BESYLATE 10 MG TABLET PO SCH (10:00)
[2020-03-11 12:00] VITALS: BP_SYST 120
[2020-03-11] MEDS: cefTRIAXone 1 GM in D5W 50 ML IV SCH (14:00)
[2020-03-11 16:00] VITALS: BP_SYST 113
[2020-03-11 20:00] VITALS: BP_SYST 125
[2020-03-11] MEDS: BUDESONIDE 0.5 MG/2 ML AMPUL.NEB INH SCH (20:32)
[2020-03-12] VITALS: BP_SYST 122
[2020-03-12 08:00] VITALS: BP_SYST 116
[2020-03-12] MEDS: KCL 20 mEq in NS 1000 mL 1,000 ML IV SCH (08:00)
[2020-03-12] MEDS: DOCUSATE SODIUM 100 MG CAPSULE PO SCH ×2 (09:20→22:06)
[2020-03-12] MEDS: methylPREDNISolone SOD SUCC 40 MG/ML VIAL IVP SCH ×2 (09:20→22:06)
[2020-03-12] MEDS: THIAMINE HCL 100 MG TABLET PO SCH (09:21)
[2020-03-12] MEDS: amLODIPine BESYLATE 10 MG TABLET PO SCH (09:21)
[2020-03-12] MEDS: ASCORBIC ACID 500 MG TABLET PO SCH ×2 (09:21→22:07)
[2020-03-12] MEDS: LOSARTAN POTASSIUM 50 MG TABLET (COZAAR) PO SCH ×2 (09:21→22:06)
[2020-03-12] MEDS: ENOXAPARIN SODIUM 40 MG/0.4 ML SYRINGE SUBCUT SCH ×2 (09:22→22:08)
[2020-03-12] MEDS: CHOLECALCIFEROL (VITAMIN D3) 5,000 UNIT TABLET PO SCH (09:22)
[2020-03-12 09:38] LABS: BASOPHILS % (AUTO) 0.3 % (0.0-2.0); EOSINOPHILS # (AUTO) 0.1 K/uL (0.0-0.4); EOSINOPHILS % (AUTO) 0.6 % (0.0-4.0); HEMATOCRIT 46.2 % (36-54); HEMOGLOBIN 15.5 g/dL (14.0-18.0); MEAN CORPUSCULAR HEMOGLOBIN 33 pg (27-31); MEAN CORPUSCULAR HGB CONC 34 % (32-36); MEAN CORPUSCULAR VOLUME 97 fL (79.0-98.0); MONOCYTES # (AUTO) 0.5 K/uL (0.0-1.0); NEUTROPHILS # (AUTO) 14.9 K/uL (1.8-7.7); NEUTROPHILS % (AUTO) 90.1 % (40.0-70.0); PLATELET COUNT (AUTO) 348 K/uL (130-430); RED BLOOD CELL COUNT(AUTO) 4.75 MIL/uL (4.2-6.2); RED CELL DISTRIBUTION WIDTH 13.1 % (9.0-15.0); WHITE BLOOD COUNT (AUTO) 16.6 K/uL (4.8-10.8)
[2020-03-12] MEDS ORDERED: LORazepam 1 MG TABLET ONE (09:51)
[2020-03-12] MEDS: LORazepam 1 MG TABLET PO PRN ×2 (10:00→12:19)
[2020-03-12 11:07] VITALS: BP_SYST 116
[2020-03-12] MEDS: cefTRIAXone 1 GM in D5W 50 ML IV SCH (14:00)
[2020-03-12 14:28] VITALS: BP_SYST 116
[2020-03-12 15:34] VITALS: BP_SYST 116
[2020-03-12 21:30] VITALS: BP_SYST 115
[2020-03-13 05:00] VITALS: BP_SYST 122
[2020-03-13 08:00] VITALS: BP_SYST 96
[2020-03-13] MEDS: KCL 20 mEq in NS 1000 mL 1,000 ML IV SCH (08:09)
[2020-03-13] MEDS: LOSARTAN POTASSIUM 50 MG TABLET (COZAAR) PO SCH ×2 (09:00→21:00)
[2020-03-13] MEDS: ENOXAPARIN SODIUM 40 MG/0.4 ML SYRINGE SUBCUT SCH ×2 (09:00→21:00)
[2020-03-13] MEDS: amLODIPine BESYLATE 10 MG TABLET PO SCH (09:00)
[2020-03-13] MEDS: methylPREDNISolone SOD SUCC 40 MG/ML VIAL IVP SCH ×2 (09:13→21:00)
[2020-03-13] MEDS: DOCUSATE SODIUM 100 MG CAPSULE PO SCH ×2 (09:14→21:00)
[2020-03-13] MEDS: ASCORBIC ACID 500 MG TABLET PO SCH ×2 (09:14→21:00)
[2020-03-13] MEDS: THIAMINE HCL 100 MG TABLET PO SCH (09:14)
[2020-03-13] MEDS: CHOLECALCIFEROL (VITAMIN D3) 5,000 UNIT TABLET PO SCH (09:15)
[2020-03-13 12:00] VITALS: BP_SYST 114
[2020-03-13] MEDS: cefTRIAXone 1 GM in D5W 50 ML IV SCH (13:37)
[2020-03-13 16:00] VITALS: BP_SYST 107
[2020-03-13] MEDS: BUDESONIDE 0.5 MG/2 ML AMPUL.NEB INH SCH (20:49)
[2020-03-13 21:00] VITALS: BP_SYST 118
[2020-03-14 08:00] VITALS: BP_SYST 124
[2020-03-14 08:19] LABS: BASOPHILS % (AUTO) 0.2 % (0.0-2.0); EOSINOPHILS # (AUTO) 0.1 K/uL (0.0-0.4); EOSINOPHILS % (AUTO) 0.5 % (0.0-4.0); HEMATOCRIT 42.8 % (36-54); HEMOGLOBIN 14.4 g/dL (14.0-18.0); LYMPHOCYTES # (AUTO) 0.8 K/uL (1.0-5.5); LYMPHOCYTES % (AUTO) 4.6 % (20.5-51.5); MEAN CORPUSCULAR HEMOGLOBIN 32 pg (27-31); MEAN CORPUSCULAR HGB CONC 34 % (32-36); MEAN CORPUSCULAR VOLUME 96 fL (79.0-98.0); MONOCYTES # (AUTO) 0.7 K/uL (0.0-1.0); NEUTROPHILS # (AUTO) 15.9 K/uL (1.8-7.7); NEUTROPHILS % (AUTO) 90.7 % (40.0-70.0); PLATELET COUNT (AUTO) 278 K/uL (130-430); RED BLOOD CELL COUNT(AUTO) 4.45 MIL/uL (4.2-6.2); RED CELL DISTRIBUTION WIDTH 12.8 % (9.0-15.0); WHITE BLOOD COUNT (AUTO) 17.6 K/uL (4.8-10.8)
[2020-03-14 08:56] LABS: CALCIUM 8.7 mg/dL (8.4-11.0); CREATININE 0.78 mg/dL (0.55-1.30); PHOSPHORUS 4.9 mg/dL (2.7-4.5)
[2020-03-14] MEDS: THIAMINE HCL 100 MG TABLET PO SCH (09:00)
[2020-03-14] MEDS: methylPREDNISolone SOD SUCC 40 MG/ML VIAL IVP SCH ×2 (09:00→21:48)
[2020-03-14] MEDS: LOSARTAN POTASSIUM 50 MG TABLET (COZAAR) PO SCH ×2 (09:00→21:49)
[2020-03-14] MEDS: ENOXAPARIN SODIUM 40 MG/0.4 ML SYRINGE SUBCUT SCH ×2 (09:00→21:50)
[2020-03-14] MEDS: amLODIPine BESYLATE 10 MG TABLET PO SCH (09:00)
[2020-03-14] MEDS: CHOLECALCIFEROL (VITAMIN D3) 5,000 UNIT TABLET PO SCH (09:00)
[2020-03-14] MEDS: DOCUSATE SODIUM 100 MG CAPSULE PO SCH ×2 (09:00→21:48)
[2020-03-14] MEDS: ASCORBIC ACID 500 MG TABLET PO SCH ×2 (09:00→21:49)
[2020-03-14] MEDS: BUDESONIDE 0.5 MG/2 ML AMPUL.NEB INH SCH ×2 (09:00→21:00)
[2020-03-14 12:00] VITALS: BP_SYST 116
[2020-03-14] MEDS: cefTRIAXone 1 GM in D5W 50 ML IV SCH (14:00)
[2020-03-14 16:00] VITALS: BP_SYST 115
[2020-03-14 21:30] VITALS: BP_SYST 108
[2020-03-15 07:45] VITALS: BP_SYST 110
[2020-03-15] MEDS: BUDESONIDE 0.5 MG/2 ML AMPUL.NEB INH SCH (09:00)
[2020-03-15] MEDS: LOSARTAN POTASSIUM 50 MG TABLET (COZAAR) PO SCH ×2 (09:54→21:56)
[2020-03-15] MEDS: DOCUSATE SODIUM 100 MG CAPSULE PO SCH ×2 (09:54→21:56)
[2020-03-15] MEDS: methylPREDNISolone SOD SUCC 40 MG/ML VIAL IVP SCH ×2 (09:54→21:56)
[2020-03-15 09:55] VITALS: BP_SYST 110
[2020-03-15] MEDS: ENOXAPARIN SODIUM 40 MG/0.4 ML SYRINGE SUBCUT SCH ×2 (09:55→21:57)
[2020-03-15] MEDS: THIAMINE HCL 100 MG TABLET PO SCH (09:55)
[2020-03-15] MEDS: amLODIPine BESYLATE 10 MG TABLET PO SCH (09:55)
[2020-03-15] MEDS: ASCORBIC ACID 500 MG TABLET PO SCH ×2 (09:55→21:56)
[2020-03-15] MEDS: CHOLECALCIFEROL (VITAMIN D3) 5,000 UNIT TABLET PO SCH (09:55)
[2020-03-15 12:02] VITALS: BP_SYST 120
[2020-03-15] MEDS: cefTRIAXone 1 GM in D5W 50 ML IV SCH (14:55)
[2020-03-15 16:00] VITALS: BP_SYST 108
[2020-03-15 20:00] VITALS: BP_SYST 127
[2020-03-16] MEDS: DOCUSATE SODIUM 100 MG CAPSULE PO SCH ×2 (08:46→21:57)
[2020-03-16] MEDS: methylPREDNISolone SOD SUCC 40 MG/ML VIAL IVP SCH ×2 (08:46→21:57)
[2020-03-16] MEDS: amLODIPine BESYLATE 10 MG TABLET PO SCH (08:47)
[2020-03-16] MEDS: THIAMINE HCL 100 MG TABLET PO SCH (08:47)
[2020-03-16] MEDS: CHOLECALCIFEROL (VITAMIN D3) 5,000 UNIT TABLET PO SCH (08:47)
[2020-03-16] MEDS: LOSARTAN POTASSIUM 50 MG TABLET (COZAAR) PO SCH ×2 (08:47→21:57)
[2020-03-16] MEDS: ASCORBIC ACID 500 MG TABLET PO SCH ×2 (08:47→21:57)
[2020-03-16] MEDS: ENOXAPARIN SODIUM 40 MG/0.4 ML SYRINGE SUBCUT SCH ×2 (08:48→21:00)
[2020-03-16 08:58] VITALS: BP_SYST 114
[2020-03-16 09:03] LABS: BASOPHILS # (AUTO) 0.1 K/uL (0.0-0.2); BASOPHILS % (AUTO) 0.8 % (0.0-2.0); EOSINOPHILS # (AUTO) 0.1 K/uL (0.0-0.4); EOSINOPHILS % (AUTO) 0.3 % (0.0-4.0); HEMATOCRIT 44.8 % (36-54); HEMOGLOBIN 15.2 g/dL (14.0-18.0); LYMPHOCYTES # (AUTO) 0.7 K/uL (1.0-5.5); MEAN CORPUSCULAR HEMOGLOBIN 33 pg (27-31); MEAN CORPUSCULAR HGB CONC 34 % (32-36); MEAN CORPUSCULAR VOLUME 96 fL (79.0-98.0); MONOCYTES # (AUTO) 0.6 K/uL (0.0-1.0); MONOCYTES % (AUTO) 3.4 % (1.7-9.3); NEUTROPHILS # (AUTO) 16.6 K/uL (1.8-7.7); NEUTROPHILS % (AUTO) 91.5 % (40.0-70.0); PLATELET COUNT (AUTO) 246 K/uL (130-430); RED BLOOD CELL COUNT(AUTO) 4.65 MIL/uL (4.2-6.2); RED CELL DISTRIBUTION WIDTH 13.1 % (9.0-15.0); WHITE BLOOD COUNT (AUTO) 18.2 K/uL (4.8-10.8)
[2020-03-16 09:43] LABS: ALBUMIN 2.6 g/dL (3.4-4.8); CALCIUM 9.1 mg/dL (8.4-11.0); CREATININE 0.56 mg/dL (0.55-1.30); POTASSIUM 4.3 mmol/L (3.5-5.1); TOTAL BILIRUBIN 0.4 mg/dL (0.0-1.0)
[2020-03-16 12:40] VITALS: BP_SYST 96
[2020-03-16] MEDS: cefTRIAXone 1 GM in D5W 50 ML IV SCH (13:56)
[2020-03-16 16:50] VITALS: BP_SYST 110
[2020-03-17 08:00] VITALS: BP_SYST 100
[2020-03-17] MEDS: DOCUSATE SODIUM 100 MG CAPSULE PO SCH ×2 (08:48→21:00)
[2020-03-17] MEDS: CHOLECALCIFEROL (VITAMIN D3) 5,000 UNIT TABLET PO SCH (08:48)
[2020-03-17] MEDS: ASCORBIC ACID 500 MG TABLET PO SCH ×2 (08:48→21:00)
[2020-03-17] MEDS: methylPREDNISolone SOD SUCC 40 MG/ML VIAL IVP SCH ×2 (08:48→21:00)
[2020-03-17] MEDS: THIAMINE HCL 100 MG TABLET PO SCH (08:48)
[2020-03-17] MEDS: LOSARTAN POTASSIUM 50 MG TABLET (COZAAR) PO SCH ×2 (10:05→21:00)
[2020-03-17] MEDS: ENOXAPARIN SODIUM 40 MG/0.4 ML SYRINGE SUBCUT SCH ×2 (10:06→21:00)
[2020-03-17] MEDS: amLODIPine BESYLATE 10 MG TABLET PO SCH (10:06)
[2020-03-17 12:37] VITALS: BP_SYST 108
[2020-03-17 16:08] VITALS: BP_SYST 116
[2020-03-17 20:00] VITALS: BP_SYST 109
[2020-03-17] MEDS ORDERED: LOSARTAN POTASSIUM 25 MG TABLET ONE (21:47)
[2020-03-18 04:00] VITALS: BP_SYST 106
[2020-03-18 08:00] VITALS: BP_SYST 102
[2020-03-18] MEDS: LOSARTAN POTASSIUM 50 MG TABLET (COZAAR) PO SCH ×2 (09:00→21:00)
[2020-03-18] MEDS: ASCORBIC ACID 500 MG TABLET PO SCH ×2 (09:00→21:00)
[2020-03-18 09:15] LABS: BASOPHILS % (AUTO) 0.2 % (0.0-2.0); EOSINOPHILS # (AUTO) 0.6 K/uL (0.0-0.4); EOSINOPHILS % (AUTO) 4.7 % (0.0-4.0); HEMATOCRIT 44.7 % (36-54); HEMOGLOBIN 14.9 g/dL (14.0-18.0); LYMPHOCYTES # (AUTO) 1.6 K/uL (1.0-5.5); LYMPHOCYTES % (AUTO) 12.1 % (20.5-51.5); MEAN CORPUSCULAR HEMOGLOBIN 32 pg (27-31); MEAN CORPUSCULAR HGB CONC 33 % (32-36); MEAN CORPUSCULAR VOLUME 96 fL (79.0-98.0); MONOCYTES # (AUTO) 0.7 K/uL (0.0-1.0); MONOCYTES % (AUTO) 5.1 % (1.7-9.3); NEUTROPHILS # (AUTO) 10.2 K/uL (1.8-7.7); NEUTROPHILS % (AUTO) 77.9 % (40.0-70.0); PLATELET COUNT (AUTO) 191 K/uL (130-430); RED BLOOD CELL COUNT(AUTO) 4.64 MIL/uL (4.2-6.2); WHITE BLOOD COUNT (AUTO) 13.2 K/uL (4.8-10.8)
[2020-03-18 09:38] LABS: ALBUMIN 2.6 g/dL (3.4-4.8); CREATININE 0.63 mg/dL (0.55-1.30); POTASSIUM 4.4 mmol/L (3.5-5.1); TOTAL BILIRUBIN 0.5 mg/dL (0.0-1.0)
[2020-03-18] MEDS: amLODIPine BESYLATE 10 MG TABLET PO SCH (09:46)
[2020-03-18] MEDS: CHOLECALCIFEROL (VITAMIN D3) 5,000 UNIT TABLET PO SCH (09:46)
[2020-03-18] MEDS: DOCUSATE SODIUM 100 MG CAPSULE PO SCH ×2 (09:46→21:00)
[2020-03-18] MEDS: methylPREDNISolone SOD SUCC 40 MG/ML VIAL IVP SCH ×2 (09:47→21:00)
[2020-03-18] MEDS: THIAMINE HCL 100 MG TABLET PO SCH (09:47)
[2020-03-18 11:00] VITALS: BP_SYST 102
[2020-03-18] MEDS: CEFEPIME 1 GM in D5W 50 ML IV SCH (21:00)
[2020-03-18] MEDS: APIXABAN 2.5 MG TABLET PO SCH (21:00)
[2020-03-18 22:41] VITALS: BP_SYST 111
[2020-03-19] MEDS ORDERED: BISACODYL 10 MG/SUPPOSITORY RC PRN (06:45)
[2020-03-19 08:00] VITALS: BP_SYST 115
[2020-03-19] MEDS: methylPREDNISolone SOD SUCC 40 MG/ML VIAL IVP SCH ×2 (08:35→22:22)
[2020-03-19] MEDS: LOSARTAN POTASSIUM 50 MG TABLET (COZAAR) PO SCH ×3 (08:36→22:22)
[2020-03-19] MEDS: DOCUSATE SODIUM 100 MG CAPSULE PO SCH ×2 (08:36→22:22)
[2020-03-19] MEDS: THIAMINE HCL 100 MG TABLET PO SCH (08:36)
[2020-03-19] MEDS: CHOLECALCIFEROL (VITAMIN D3) 5,000 UNIT TABLET PO SCH (08:37)
[2020-03-19] MEDS: ASCORBIC ACID 500 MG TABLET PO SCH ×2 (08:37→22:22)
[2020-03-19] MEDS: CEFEPIME 1 GM in D5W 50 ML IV SCH ×2 (08:38→22:21)
[2020-03-19] MEDS: amLODIPine BESYLATE 10 MG TABLET PO SCH (08:38)
[2020-03-19] MEDS: APIXABAN 2.5 MG TABLET PO SCH ×2 (08:38→22:34)
[2020-03-19 22:20] VITALS: BP_SYST 112
[2020-03-20 08:12] LABS: BASOPHILS # (AUTO) 0.1 K/uL (0.0-0.2); BASOPHILS % (AUTO) 0.3 % (0.0-2.0); EOSINOPHILS # (AUTO) 0.1 K/uL (0.0-0.4); EOSINOPHILS % (AUTO) 0.4 % (0.0-4.0); HEMATOCRIT 42.3 % (36-54); HEMOGLOBIN 14.4 g/dL (14.0-18.0); LYMPHOCYTES # (AUTO) 0.4 K/uL (1.0-5.5); LYMPHOCYTES % (AUTO) 2.2 % (20.5-51.5); MEAN CORPUSCULAR HEMOGLOBIN 33 pg (27-31); MEAN CORPUSCULAR HGB CONC 34 % (32-36); MEAN CORPUSCULAR VOLUME 96 fL (79.0-98.0); MONOCYTES # (AUTO) 0.4 K/uL (0.0-1.0); MONOCYTES % (AUTO) 2.4 % (1.7-9.3); NEUTROPHILS # (AUTO) 16.4 K/uL (1.8-7.7); NEUTROPHILS % (AUTO) 94.7 % (40.0-70.0); PLATELET COUNT (AUTO) 193 K/uL (130-430); RED BLOOD CELL COUNT(AUTO) 4.42 MIL/uL (4.2-6.2); RED CELL DISTRIBUTION WIDTH 13.4 % (9.0-15.0); WHITE BLOOD COUNT (AUTO) 17.3 K/uL (4.8-10.8)
[2020-03-20] MEDS: ASCORBIC ACID 500 MG TABLET PO SCH ×2 (09:00→20:27)
[2020-03-20] MEDS: CEFEPIME 1 GM in D5W 50 ML IV SCH ×2 (09:00→20:29)
[2020-03-20] MEDS: amLODIPine BESYLATE 10 MG TABLET PO SCH (09:00)
[2020-03-20] MEDS: APIXABAN 2.5 MG TABLET PO SCH ×2 (09:00→20:27)
[2020-03-20] MEDS: LOSARTAN POTASSIUM 50 MG TABLET (COZAAR) PO SCH ×2 (09:00→20:28)
[2020-03-20] MEDS: DOCUSATE SODIUM 100 MG CAPSULE PO SCH ×2 (09:00→20:28)
[2020-03-20] MEDS: CHOLECALCIFEROL (VITAMIN D3) 5,000 UNIT TABLET PO SCH (09:00)
[2020-03-20] MEDS: THIAMINE HCL 100 MG TABLET PO SCH (09:00)
[2020-03-20] MEDS: methylPREDNISolone SOD SUCC 40 MG/ML VIAL IVP SCH ×2 (09:00→20:29)
[2020-03-20 11:37] VITALS: BP_SYST 115
[2020-03-20 15:25] VITALS: BP_SYST 123
[2020-03-20 16:00] VITALS: BP_SYST 125
[2020-03-20 20:00] VITALS: BP_SYST 121
[2020-03-21] VITALS: BP_SYST 110
[2020-03-21 08:00] VITALS: BP_SYST 119
[2020-03-21] MEDS: methylPREDNISolone SOD SUCC 40 MG/ML VIAL IVP SCH ×2 (09:00→21:00)
[2020-03-21] MEDS: ASCORBIC ACID 500 MG TABLET PO SCH ×2 (09:00→21:00)
[2020-03-21] MEDS: CHOLECALCIFEROL (VITAMIN D3) 5,000 UNIT TABLET PO SCH (09:00)
[2020-03-21] MEDS: LOSARTAN POTASSIUM 50 MG TABLET (COZAAR) PO SCH ×2 (09:00→21:00)
[2020-03-21] MEDS: APIXABAN 2.5 MG TABLET PO SCH ×2 (09:00→21:00)
[2020-03-21] MEDS: amLODIPine BESYLATE 10 MG TABLET PO SCH (09:00)
[2020-03-21] MEDS: THIAMINE HCL 100 MG TABLET PO SCH (09:00)
[2020-03-21] MEDS: DOCUSATE SODIUM 100 MG CAPSULE PO SCH ×2 (09:00→21:00)
[2020-03-21] MEDS: CEFEPIME 1 GM in D5W 50 ML IV SCH ×2 (10:00→21:00)
[2020-03-21 12:00] VITALS: BP_SYST 104
[2020-03-21 16:00] VITALS: BP_SYST 110
[2020-03-21 20:00] VITALS: BP_SYST 104
[2020-03-22 08:00] VITALS: BP_SYST 117
[2020-03-22] MEDS: methylPREDNISolone SOD SUCC 40 MG/ML VIAL IVP SCH ×2 (09:00→20:30)
[2020-03-22] MEDS: amLODIPine BESYLATE 10 MG TABLET PO SCH (09:00)
[2020-03-22] MEDS: DOCUSATE SODIUM 100 MG CAPSULE PO SCH ×2 (09:00→20:30)
[2020-03-22] MEDS: ASCORBIC ACID 500 MG TABLET PO SCH ×2 (09:00→20:30)
[2020-03-22] MEDS: APIXABAN 2.5 MG TABLET PO SCH ×2 (09:00→20:30)
[2020-03-22] MEDS: CHOLECALCIFEROL (VITAMIN D3) 5,000 UNIT TABLET PO SCH (09:00)
[2020-03-22] MEDS: THIAMINE HCL 100 MG TABLET PO SCH (09:00)
[2020-03-22] MEDS: LOSARTAN POTASSIUM 50 MG TABLET (COZAAR) PO SCH ×2 (09:00→20:30)
[2020-03-22] MEDS: CEFEPIME 1 GM in D5W 50 ML IV SCH ×2 (09:00→20:30)
[2020-03-22 12:00] VITALS: BP_SYST 115
[2020-03-22 14:34] VITALS: BP_SYST 115
[2020-03-22 16:00] VITALS: BP_SYST 115
[2020-03-22 20:00] VITALS: BP_SYST 120
[2020-03-23 07:21] LABS: BASOPHILS # (AUTO) 0.1 K/uL (0.0-0.2); BASOPHILS % (AUTO) 0.3 % (0.0-2.0); EOSINOPHILS % (AUTO) 0.1 % (0.0-4.0); HEMATOCRIT 44.4 % (36-54); LYMPHOCYTES # (AUTO) 0.6 K/uL (1.0-5.5); LYMPHOCYTES % (AUTO) 3.3 % (20.5-51.5); MEAN CORPUSCULAR HEMOGLOBIN 32 pg (27-31); MEAN CORPUSCULAR HGB CONC 34 % (32-36); MEAN CORPUSCULAR VOLUME 96 fL (79.0-98.0); MONOCYTES # (AUTO) 0.6 K/uL (0.0-1.0); MONOCYTES % (AUTO) 3.3 % (1.7-9.3); NEUTROPHILS # (AUTO) 17.3 K/uL (1.8-7.7); PLATELET COUNT (AUTO) 214 K/uL (130-430); RED BLOOD CELL COUNT(AUTO) 4.64 MIL/uL (4.2-6.2); WHITE BLOOD COUNT (AUTO) 18.6 K/uL (4.8-10.8)
[2020-03-23 08:15] VITALS: BP_SYST 121
[2020-03-23] MEDS: BUDESONIDE 0.5 MG/2 ML AMPUL.NEB INH SCH (09:00)
[2020-03-23] MEDS: APIXABAN 2.5 MG TABLET PO SCH ×2 (10:25→21:30)
[2020-03-23] MEDS: ASCORBIC ACID 500 MG TABLET PO SCH ×2 (10:25→21:30)
[2020-03-23] MEDS: LOSARTAN POTASSIUM 50 MG TABLET (COZAAR) PO SCH ×2 (10:25→21:30)
[2020-03-23] MEDS: CHOLECALCIFEROL (VITAMIN D3) 5,000 UNIT TABLET PO SCH (10:25)
[2020-03-23] MEDS: CEFEPIME 1 GM in D5W 50 ML IV SCH (10:25)
[2020-03-23] MEDS: amLODIPine BESYLATE 10 MG TABLET PO SCH (10:25)
[2020-03-23] MEDS: DOCUSATE SODIUM 100 MG CAPSULE PO SCH ×2 (10:25→21:30)
[2020-03-23] MEDS: THIAMINE HCL 100 MG TABLET PO SCH (10:25)
[2020-03-23] MEDS: methylPREDNISolone SOD SUCC 40 MG/ML VIAL IVP SCH ×2 (10:25→21:30)
[2020-03-23 16:35] VITALS: BP_SYST 122
[2020-03-23 20:00] VITALS: BP_SYST 118; BP_SYST 148
[2020-03-23] MEDS: PIPERACILLIN/TAZO 4.5GM/DEX-IS 100 ML IV SCH (22:10)
[2020-03-24] VITALS: BP_SYST 128
[2020-03-24] MEDS: PIPERACILLIN/TAZO 4.5GM/DEX-IS 100 ML IV SCH ×3 (06:30→22:00)
[2020-03-24 08:43] VITALS: BP_SYST 97
[2020-03-24] MEDS: amLODIPine BESYLATE 10 MG TABLET PO SCH (09:00)
[2020-03-24] MEDS: LOSARTAN POTASSIUM 50 MG TABLET (COZAAR) PO SCH ×2 (09:00→21:00)
[2020-03-24] MEDS: DOCUSATE SODIUM 100 MG CAPSULE PO SCH ×2 (09:54→21:00)
[2020-03-24] MEDS: ASCORBIC ACID 500 MG TABLET PO SCH ×2 (09:54→21:00)
[2020-03-24] MEDS: THIAMINE HCL 100 MG TABLET PO SCH (09:54)
[2020-03-24] MEDS: methylPREDNISolone SOD SUCC 40 MG/ML VIAL IVP SCH ×2 (09:54→21:00)
[2020-03-24] MEDS: CHOLECALCIFEROL (VITAMIN D3) 5,000 UNIT TABLET PO SCH (09:54)
[2020-03-24] MEDS: APIXABAN 2.5 MG TABLET PO SCH ×2 (09:55→21:00)
[2020-03-24 23:42] VITALS: BP_SYST 132
[2020-03-25] MEDS: PIPERACILLIN/TAZO 4.5GM/DEX-IS 100 ML IV SCH ×3 (05:51→21:00)
[2020-03-25] MEDS: methylPREDNISolone SOD SUCC 40 MG/ML VIAL IVP SCH ×2 (08:00→21:00)
[2020-03-25] MEDS: DOCUSATE SODIUM 100 MG CAPSULE PO SCH ×2 (08:00→21:00)
[2020-03-25] MEDS: CHOLECALCIFEROL (VITAMIN D3) 5,000 UNIT TABLET PO SCH (08:01)
[2020-03-25] MEDS: THIAMINE HCL 100 MG TABLET PO SCH (08:01)
[2020-03-25] MEDS: ASCORBIC ACID 500 MG TABLET PO SCH ×2 (08:01→21:00)
[2020-03-25] MEDS: LOSARTAN POTASSIUM 50 MG TABLET (COZAAR) PO SCH ×2 (08:02→21:00)
[2020-03-25] MEDS: APIXABAN 2.5 MG TABLET PO SCH ×2 (08:02→21:00)
[2020-03-25 08:03] VITALS: BP_SYST 118
[2020-03-25] MEDS: BUDESONIDE 0.5 MG/2 ML AMPUL.NEB INH SCH (08:56)
[2020-03-25 10:44] VITALS: BP_SYST 118
[2020-03-25 11:32] VITALS: BP_SYST 119
[2020-03-25] MEDS: amLODIPine BESYLATE 10 MG TABLET PO SCH (11:33)
[2020-03-25] MEDS: MICAFUNGIN SODIUM 100 MG in NS 100 ML IV SCH (13:25)
[2020-03-25 18:21] VITALS: BP_SYST 114
[2020-03-25 20:01] VITALS: BP_SYST 123
[2020-03-25] MEDS: TEMAZEPAM 15 MG CAPSULE PO PRN (21:00)
[2020-03-26 00:35] VITALS: BP_SYST 102
[2020-03-26] MEDS: PIPERACILLIN/TAZO 4.5GM/DEX-IS 100 ML IV SCH ×3 (05:25→21:45)
[2020-03-26 08:00] VITALS: BP_SYST 112
[2020-03-26] MEDS: methylPREDNISolone SOD SUCC 40 MG/ML VIAL IVP SCH ×2 (09:21→21:45)
[2020-03-26] MEDS: APIXABAN 2.5 MG TABLET PO SCH ×2 (09:21→21:45)
[2020-03-26] MEDS: LOSARTAN POTASSIUM 50 MG TABLET (COZAAR) PO SCH ×2 (09:21→21:45)
[2020-03-26] MEDS: ASCORBIC ACID 500 MG TABLET PO SCH ×2 (09:21→21:45)
[2020-03-26] MEDS: CHOLECALCIFEROL (VITAMIN D3) 5,000 UNIT TABLET PO SCH (09:21)
[2020-03-26] MEDS: DOCUSATE SODIUM 100 MG CAPSULE PO SCH ×2 (09:21→21:45)
[2020-03-26] MEDS: THIAMINE HCL 100 MG TABLET PO SCH (09:22)
[2020-03-26] MEDS: amLODIPine BESYLATE 10 MG TABLET PO SCH (09:22)
[2020-03-26] MEDS: MICAFUNGIN SODIUM 100 MG in NS 100 ML IV SCH (11:57)
[2020-03-26 12:00] VITALS: BP_SYST 145
[2020-03-26 16:00] VITALS: BP_SYST 118
[2020-03-26 20:30] VITALS: BP_SYST 132
[2020-03-26] MEDS: TEMAZEPAM 15 MG CAPSULE PO PRN (21:45)
[2020-03-27] VITALS: BP_SYST 112
[2020-03-27] MEDS: PIPERACILLIN/TAZO 4.5GM/DEX-IS 100 ML IV SCH ×3 (05:30→21:40)
[2020-03-27 07:53] LABS: BASOPHILS % (AUTO) 0.1 % (0.0-2.0); HEMATOCRIT 44.1 % (36-54); LYMPHOCYTES # (AUTO) 0.7 K/uL (1.0-5.5); LYMPHOCYTES % (AUTO) 4.8 % (20.5-51.5); MEAN CORPUSCULAR HEMOGLOBIN 33 pg (27-31); MEAN CORPUSCULAR HGB CONC 34 % (32-36); MEAN CORPUSCULAR VOLUME 96 fL (79.0-98.0); MONOCYTES # (AUTO) 0.4 K/uL (0.0-1.0); MONOCYTES % (AUTO) 2.8 % (1.7-9.3); NEUTROPHILS # (AUTO) 13.4 K/uL (1.8-7.7); NEUTROPHILS % (AUTO) 92.3 % (40.0-70.0); PLATELET COUNT (AUTO) 234 K/uL (130-430); RED CELL DISTRIBUTION WIDTH 13.3 % (9.0-15.0); WHITE BLOOD COUNT (AUTO) 14.5 K/uL (4.8-10.8)
[2020-03-27] MEDS: THIAMINE HCL 100 MG TABLET PO SCH (09:30)
[2020-03-27] MEDS: CHOLECALCIFEROL (VITAMIN D3) 5,000 UNIT TABLET PO SCH (09:30)
[2020-03-27] MEDS: APIXABAN 2.5 MG TABLET PO SCH ×2 (09:30→21:39)
[2020-03-27] MEDS: methylPREDNISolone SOD SUCC 40 MG/ML VIAL IVP SCH ×2 (09:30→21:38)
[2020-03-27] MEDS: LOSARTAN POTASSIUM 50 MG TABLET (COZAAR) PO SCH ×2 (09:30→21:39)
[2020-03-27] MEDS: ASCORBIC ACID 500 MG TABLET PO SCH ×2 (09:30→21:39)
[2020-03-27] MEDS: DOCUSATE SODIUM 100 MG CAPSULE PO SCH ×3 (09:30→21:39)
[2020-03-27] MEDS: amLODIPine BESYLATE 10 MG TABLET PO SCH (09:30)
[2020-03-27] MEDS ORDERED: DOCUSATE SODIUM 100 MG CAPSULE PO ONE (10:00)
[2020-03-27] MEDS ORDERED: FAMOTIDINE 20 MG TABLET PO ONE (10:00)
[2020-03-27] MEDS: MICAFUNGIN SODIUM 100 MG in NS 100 ML IV SCH (12:07)
[2020-03-27 12:53] VITALS: BP_SYST 131
[2020-03-27 16:50] VITALS: BP_SYST 125
[2020-03-27 18:32] VITALS: BP_SYST 131
[2020-03-27 20:30] VITALS: BP_SYST 138
[2020-03-27] MEDS: BUDESONIDE 0.5 MG/2 ML AMPUL.NEB INH SCH (21:00)
[2020-03-27] MEDS: TEMAZEPAM 15 MG CAPSULE PO PRN ×2 (21:40→21:42)
[2020-03-27] MEDS: HYDROCORTISONE ACETATE 1 SUPP (ANUSOL HC) RC SCH (21:40)
[2020-03-27 23:56] VITALS: BP_SYST 131
[2020-03-28 00:11] VITALS: BP_SYST 130
[2020-03-28] MEDS: PIPERACILLIN/TAZO 4.5GM/DEX-IS 100 ML IV SCH ×3 (05:00→22:00)
[2020-03-28] MEDS: TEMAZEPAM 15 MG CAPSULE PO PRN (05:22)
[2020-03-28 07:04] LABS: HEMATOCRIT 41.1 % (36-54); HEMOGLOBIN 14.1 g/dL (14.0-18.0); MEAN CORPUSCULAR HEMOGLOBIN 33 pg (27-31); MEAN CORPUSCULAR HGB CONC 34 % (32-36); MEAN CORPUSCULAR VOLUME 96 fL (79.0-98.0); PLATELET COUNT (AUTO) 212 K/uL (130-430); RED BLOOD CELL COUNT(AUTO) 4.29 MIL/uL (4.2-6.2); RED CELL DISTRIBUTION WIDTH 13.3 % (9.0-15.0); WHITE BLOOD COUNT (AUTO) 11.7 K/uL (4.8-10.8)
[2020-03-28 07:17] LABS: ALBUMIN 2.6 g/dL (3.4-4.8); CALCIUM 8.5 mg/dL (8.4-11.0); CREATININE 0.67 mg/dL (0.55-1.30); POTASSIUM 4.2 mmol/L (3.5-5.1); TOTAL BILIRUBIN 0.2 mg/dL (0.0-1.0)
[2020-03-28 07:31] LABS: INR 0.9 (0.80-1.20); PROTHROMBIN TIME 9.3 SECS (9.5-12.5)
[2020-03-28 08:00] VITALS: BP_SYST 129
[2020-03-28 09:30] LABS: BAND % (MANUAL) 5 % (0-6); BASOPHILS % (MANUAL) 0 % (0-2); EOSINOPHILS % (MANUAL) 0 % (0-7); LYMPHOCYTES % (MANUAL) 3 % (20-46); METAMYELOCYTES % 2 % (0-0); MONOCYTES % (MANUAL) 4 % (0-11)
[2020-03-28] MEDS: FAMOTIDINE 20 MG TABLET PO SCH (09:45)
[2020-03-28] MEDS: THIAMINE HCL 100 MG TABLET PO SCH (09:45)
[2020-03-28] MEDS: methylPREDNISolone SOD SUCC 40 MG/ML VIAL IVP SCH ×2 (09:45→21:00)
[2020-03-28] MEDS: ASCORBIC ACID 500 MG TABLET PO SCH ×2 (09:46→21:00)
[2020-03-28] MEDS: LOSARTAN POTASSIUM 50 MG TABLET (COZAAR) PO SCH ×2 (09:47→21:00)
[2020-03-28] MEDS: amLODIPine BESYLATE 10 MG TABLET PO SCH (09:48)
[2020-03-28] MEDS: APIXABAN 2.5 MG TABLET PO SCH ×2 (09:49→21:00)
[2020-03-28] MEDS: DOCUSATE SODIUM 100 MG CAPSULE PO SCH ×4 (09:50→21:00)
[2020-03-28] MEDS: CHOLECALCIFEROL (VITAMIN D3) 5,000 UNIT TABLET PO SCH (09:50)
[2020-03-28] MEDS: MICAFUNGIN SODIUM 100 MG in NS 100 ML IV SCH (10:02)
[2020-03-28 10:58] VITALS: BP_SYST 129
[2020-03-28 12:00] VITALS: BP_SYST 130
[2020-03-28 16:00] VITALS: BP_SYST 96
[2020-03-28 20:00] VITALS: BP_SYST 127
[2020-03-28] MEDS: HYDROCORTISONE ACETATE 1 SUPP (ANUSOL HC) RC SCH (21:00)
[2020-03-29] VITALS: BP_SYST 111
[2020-03-29] MEDS: PIPERACILLIN/TAZO 4.5GM/DEX-IS 100 ML IV SCH ×3 (06:00→22:00)
[2020-03-29 07:07] LABS: HEPATITIS A AB, IgM Negative (Negative); HEPATITIS B CORE AB, IgM Negative (Negative); HEPATITIS B SURFACE AG Negative (Negative)
[2020-03-29 08:00] VITALS: BP_SYST 123
[2020-03-29] MEDS: MICAFUNGIN SODIUM 100 MG in NS 100 ML IV SCH (10:31)
[2020-03-29] MEDS: THIAMINE HCL 100 MG TABLET PO SCH (10:31)
[2020-03-29] MEDS: LOSARTAN POTASSIUM 50 MG TABLET (COZAAR) PO SCH ×2 (10:32→21:00)
[2020-03-29] MEDS: amLODIPine BESYLATE 10 MG TABLET PO SCH (10:33)
[2020-03-29] MEDS: ASCORBIC ACID 500 MG TABLET PO SCH ×2 (10:34→21:00)
[2020-03-29] MEDS: FAMOTIDINE 20 MG TABLET PO SCH (10:35)
[2020-03-29] MEDS: APIXABAN 2.5 MG TABLET PO SCH ×2 (10:35→21:00)
[2020-03-29] MEDS: DOCUSATE SODIUM 100 MG CAPSULE PO SCH ×4 (10:35→21:00)
[2020-03-29] MEDS: CHOLECALCIFEROL (VITAMIN D3) 5,000 UNIT TABLET PO SCH (10:36)
[2020-03-29] MEDS: methylPREDNISolone SOD SUCC 40 MG/ML VIAL IVP SCH ×2 (10:36→21:00)
[2020-03-29 18:17] VITALS: BP_SYST 130
[2020-03-29 19:00] VITALS: BP_SYST 111
[2020-03-29] MEDS: HYDROCORTISONE ACETATE 1 SUPP (ANUSOL HC) RC SCH (21:00)
[2020-03-30] VITALS: BP_SYST 122
[2020-03-30] MEDS: PIPERACILLIN/TAZO 4.5GM/DEX-IS 100 ML IV SCH (06:51)
[2020-03-30 08:00] VITALS: BP_SYST 117
[2020-03-30] MEDS: methylPREDNISolone SOD SUCC 40 MG/ML VIAL IVP SCH ×2 (09:23→21:00)
[2020-03-30] MEDS: DOCUSATE SODIUM 100 MG CAPSULE PO SCH ×4 (09:23→21:00)
[2020-03-30] MEDS: FAMOTIDINE 20 MG TABLET PO SCH (09:23)
[2020-03-30] MEDS: CHOLECALCIFEROL (VITAMIN D3) 5,000 UNIT TABLET PO SCH (09:24)
[2020-03-30] MEDS: THIAMINE HCL 100 MG TABLET PO SCH (09:24)
[2020-03-30] MEDS: ASCORBIC ACID 500 MG TABLET PO SCH ×2 (09:24→21:00)
[2020-03-30] MEDS: APIXABAN 2.5 MG TABLET PO SCH ×2 (09:29→21:00)
[2020-03-30] MEDS: LOSARTAN POTASSIUM 50 MG TABLET (COZAAR) PO SCH ×2 (09:43→21:00)
[2020-03-30] MEDS: amLODIPine BESYLATE 10 MG TABLET PO SCH (09:43)
[2020-03-30 12:13] VITALS: BP_SYST 120
[2020-03-30] MEDS: MICAFUNGIN SODIUM 100 MG in NS 100 ML IV SCH (13:13)
[2020-03-30 16:14] VITALS: BP_SYST 130
[2020-03-30 19:00] VITALS: BP_SYST 127
[2020-03-30 20:00] VITALS: BP_SYST 127
[2020-03-30] MEDS: HYDROCORTISONE ACETATE 1 SUPP (ANUSOL HC) RC SCH (21:00)
[2020-03-31 07:57] VITALS: BP_SYST 133
[2020-03-31] MEDS: methylPREDNISolone SOD SUCC 40 MG/ML VIAL IVP SCH ×2 (08:56→21:00)
[2020-03-31] MEDS: FAMOTIDINE 20 MG TABLET PO SCH (08:56)
[2020-03-31] MEDS: THIAMINE HCL 100 MG TABLET PO SCH (08:57)
[2020-03-31] MEDS: APIXABAN 2.5 MG TABLET PO SCH ×2 (08:57→21:00)
[2020-03-31] MEDS: LOSARTAN POTASSIUM 50 MG TABLET (COZAAR) PO SCH ×2 (08:58→21:00)
[2020-03-31] MEDS: amLODIPine BESYLATE 10 MG TABLET PO SCH (08:58)
[2020-03-31] MEDS: CHOLECALCIFEROL (VITAMIN D3) 5,000 UNIT TABLET PO SCH (08:59)
[2020-03-31] MEDS: ASCORBIC ACID 500 MG TABLET PO SCH ×2 (08:59→21:00)
[2020-03-31] MEDS: DOCUSATE SODIUM 100 MG CAPSULE PO SCH ×4 (08:59→21:00)
[2020-03-31] MEDS: MICAFUNGIN SODIUM 100 MG in NS 100 ML IV SCH (11:36)
[2020-03-31 12:16] VITALS: BP_SYST 114
[2020-03-31 14:23] VITALS: BP_SYST 114
[2020-03-31 16:15] VITALS: BP_SYST 130
[2020-03-31 19:00] VITALS: BP_SYST 133
[2020-03-31 20:00] VITALS: BP_SYST 133
[2020-03-31] MEDS: HYDROCORTISONE ACETATE 1 SUPP (ANUSOL HC) RC SCH (21:00)
[2020-04-01 07:20] LABS: BASOPHILS % (AUTO) 0.3 % (0.0-2.0); HEMATOCRIT 46.9 % (36-54); HEMOGLOBIN 15.9 g/dL (14.0-18.0); LYMPHOCYTES # (AUTO) 0.6 K/uL (1.0-5.5); LYMPHOCYTES % (AUTO) 4.4 % (20.5-51.5); MEAN CORPUSCULAR HEMOGLOBIN 33 pg (27-31); MEAN CORPUSCULAR HGB CONC 34 % (32-36); MEAN CORPUSCULAR VOLUME 96 fL (79.0-98.0); MONOCYTES # (AUTO) 0.3 K/uL (0.0-1.0); MONOCYTES % (AUTO) 2.6 % (1.7-9.3); NEUTROPHILS # (AUTO) 11.8 K/uL (1.8-7.7); NEUTROPHILS % (AUTO) 92.7 % (40.0-70.0); PLATELET COUNT (AUTO) 215 K/uL (130-430); RED BLOOD CELL COUNT(AUTO) 4.87 MIL/uL (4.2-6.2); RED CELL DISTRIBUTION WIDTH 13.9 % (9.0-15.0); WHITE BLOOD COUNT (AUTO) 12.7 K/uL (4.8-10.8)
[2020-04-01 07:58] LABS: ALBUMIN 3.1 g/dL (3.4-4.8); CALCIUM 9.1 mg/dL (8.4-11.0); CREATININE 0.6 mg/dL (0.55-1.30); POTASSIUM 4.5 mmol/L (3.5-5.1); TOTAL BILIRUBIN 0.5 mg/dL (0.0-1.0)
[2020-04-01 08:00] VITALS: BP_SYST 128
[2020-04-01] MEDS: ASCORBIC ACID 500 MG TABLET PO SCH ×2 (09:00→22:01)
[2020-04-01] MEDS: DOCUSATE SODIUM 100 MG CAPSULE PO SCH ×4 (09:00→22:01)
[2020-04-01] MEDS: methylPREDNISolone SOD SUCC 40 MG/ML VIAL IVP SCH ×2 (09:00→22:00)
[2020-04-01] MEDS: amLODIPine BESYLATE 10 MG TABLET PO SCH (09:01)
[2020-04-01] MEDS: CHOLECALCIFEROL (VITAMIN D3) 5,000 UNIT TABLET PO SCH (09:01)
[2020-04-01] MEDS: FAMOTIDINE 20 MG TABLET PO SCH (09:01)
[2020-04-01] MEDS: APIXABAN 2.5 MG TABLET PO SCH ×2 (09:02→22:05)
[2020-04-01] MEDS: LOSARTAN POTASSIUM 50 MG TABLET (COZAAR) PO SCH ×2 (09:02→22:01)
[2020-04-01] MEDS: THIAMINE HCL 100 MG TABLET PO SCH (09:03)
[2020-04-01 13:49] VITALS: BP_SYST 104
[2020-04-01 17:15] VITALS: BP_SYST 127
[2020-04-01] MEDS: HYDROCORTISONE ACETATE 1 SUPP (ANUSOL HC) RC SCH (21:00)
[2020-04-01 22:00] VITALS: BP_SYST 132
[2020-04-02 00:30] VITALS: BP_SYST 128
[2020-04-02 08:00] VITALS: BP_SYST 126
[2020-04-02] MEDS: methylPREDNISolone SOD SUCC 40 MG/ML VIAL IVP SCH (08:38)
[2020-04-02] MEDS: ASCORBIC ACID 500 MG TABLET PO SCH (08:38)
[2020-04-02] MEDS: CHOLECALCIFEROL (VITAMIN D3) 5,000 UNIT TABLET PO SCH (08:38)
[2020-04-02] MEDS: THIAMINE HCL 100 MG TABLET PO SCH (08:38)
[2020-04-02] MEDS: DOCUSATE SODIUM 100 MG CAPSULE PO SCH ×2 (08:39)
[2020-04-02] MEDS: FAMOTIDINE 20 MG TABLET PO SCH (08:40)
[2020-04-02] MEDS: LOSARTAN POTASSIUM 50 MG TABLET (COZAAR) PO SCH (09:15)
[2020-04-02] MEDS: APIXABAN 2.5 MG TABLET PO SCH (09:16)
[2020-04-02] MEDS: amLODIPine BESYLATE 10 MG TABLET PO SCH (09:16)
[2020-04-02 12:00] VITALS: BP_SYST 109
[2020-04-02 14:56] VITALS: BP_SYST 126
== END 2020-04-02 16:40 | disposition home or self-care (01) | DRG 871 ==
LOC: SED 09:30 → STU 15:01
PROVIDERS: ADMIT Family Medicine; ATTEND Family Medicine
PROC: XW033E5 Introduction of Remdesivir Anti-infective into Peripheral Vein, Percutaneous Approach, New Technology Group 5 (ICD-10-PCS; 2020-02-24)
PROC: XW13325 Transfusion of Convalescent Plasma (Nonautologous) into Peripheral Vein, Percutaneous Approach, New Technology Group 5 (ICD-10-PCS; principal; 2020-03-26)
DX: A41.9 Sepsis, unspecified organism (principal); J96.01 Acute respiratory failure with hypoxia; U07.1 COVID-19; J12.82 Pneumonia due to coronavirus disease 2019; K62.5 Hemorrhage of anus and rectum; E66.9 Obesity, unspecified; F10.20 Alcohol dependence, uncomplicated; I10 Essential (primary) hypertension; F41.9 Anxiety disorder, unspecified; D64.9 Anemia, unspecified; D72.810 Lymphocytopenia; K59.00 Constipation, unspecified; Z68.29 Body mass index [BMI] 29.0-29.9, adult; Z86.19 Personal history of other infectious and parasitic diseases; Z87.01 Personal history of pneumonia (recurrent); Z90.49 Acquired absence of other specified parts of digestive tract
CPT/HCPCS: 36415; 36600; 71045; 80048; 80053; 80074; 80076; 81000-TC; 82272; 82550-TC; 82728; 82803-TC; 83605; 83615-TC; 83735-TC; 83880; 84100-TC; 84484; 85007; 85025; 85027; 85379; 85384-TC; 85610-TC; 85730-TC; 86140; 86886; 86900; 86901; 87040-TC; 87081; 87086; 93005; 94640; 94760; 97110-GP; 97112-GP; 97116-GP; 97530-GP; 99291; G0378; J0692; J0696; J1030; J1100; J1650; J2060; J2248; J2543; J3480; J7030; J7050; J7060; P9017

== ENCOUNTER 2021-06-05 01:43 | Emergency (ER) | payer OTHER, SELFPAY ==
[~2021-06-05] VITALS: Ht 167.6 cm; Wt 95.3 kg
[2021-06-05 01:55] VITALS: BP_SYST 154
--- NOTE | 2021-06-05 02:05 | NUR ---
41 YR OLD AOX4, AMBULATORY MALE WITH COMPLAINT OF MID BACK PAIN /, AND NECK LACERATION FROM THREE DAYS AGO. PT REPORTS BEING CONCERNED ABOUT HIS KIDNEYS BECAUSE HE CONSUMES ALCOHOL. PT NOTED TO HAVE SIGNIFICANT LACERATION THAT IS PARTIALLY HEALED, PT STATES HE TRIPPED AND CUT HIS NECK WITH A KNIFE COOKING. PT CONCERNED THAT HE MAY HAVE AN INFECTION. PT REPORTS HISTORY OF HYPERTENSION, AND TAKES MEDICATION DAILY. PT DENIES ANY CHEST PAIN OR SHORTNESS OF BREATH.
--- NOTE | 2021-06-05 02:56 | NUR ---
URINE AND BLOOD SENT TO LAB
[2021-06-05 03:26] LABS: BASOPHILS % (AUTO) 0.7 % (0.0-2.0); EOSINOPHILS # (AUTO) 0.1 K/uL (0.0-0.4); EOSINOPHILS % (AUTO) 2.1 % (0.0-4.0); HEMATOCRIT 47.2 % (36-54); HEMOGLOBIN 16.3 g/dL (14.0-18.0); LYMPHOCYTES # (AUTO) 1.1 K/uL (1.0-5.5); MEAN CORPUSCULAR HEMOGLOBIN 33 pg (27-31); MEAN CORPUSCULAR HGB CONC 35 % (32-36); MEAN CORPUSCULAR VOLUME 95 fL (79.0-98.0); MONOCYTES # (AUTO) 0.7 K/uL (0.0-1.0); MONOCYTES % (AUTO) 12.2 % (1.7-9.3); NEUTROPHILS # (AUTO) 3.9 K/uL (1.8-7.7); PLATELET COUNT (AUTO) 166 K/uL (130-430); RED BLOOD CELL COUNT(AUTO) 4.99 MIL/uL (4.2-6.2); WHITE BLOOD COUNT (AUTO) 5.9 K/uL (4.8-10.8)
[2021-06-05 03:34] LABS: BILIRUBIN,URINE NEGATIVE (NEGATIVE); CLARITY/URINE CLEAR (CLEAR); COLOR,URINE YELLOW (YELLOW); GLUCOSE,URINE NEGATIVE (NEGATIVE); KETONES,URINE NEGATIVE (NEGATIVE); LEUKOCYTE ESTERASE ,URINE 3+ (NEGATIVE); NITRITE, URINE NEGATIVE (NEGATIVE); PROTEIN URINE NEGATIVE (NEGATIVE); UROBILINOGEN,URINE 0.2 (0.2-1.0)
[2021-06-05 03:40] LABS: CALCIUM 9.4 mg/dL (8.4-11.0); CREATININE 0.99 mg/dL (0.55-1.30); POTASSIUM 3.3 mmol/L (3.5-5.1)
[2021-06-05 03:44] LABS: BLOOD, URINE TRACE (NEGATIVE)
[2021-06-05 03:46] LABS: ALBUMIN 4.2 g/dL (3.4-4.8); TOTAL BILIRUBIN 1.3 mg/dL (0.0-1.0)
[2021-06-05] MEDS ORDERED: POTASSIUM CHLORIDE 20 MEQ TAB.PRT.SR PO ONE (04:00)
[2021-06-05] MEDS ORDERED: MAGNESIUM OXIDE 400 MG TABLET PO ONE (04:00)
[2021-06-05 04:11] LABS: BACTERIA,URINE None Seen /HPF (None Seen); WBC,URINE >100 /HPF (0-3)
[2021-06-05 04:12] LABS: MUCUS,URINE None Seen /LPF (None Seen)
[2021-06-05] MEDS ORDERED: NITR-85 PO (04:54)
--- NOTE | 2021-06-05 05:15 | NUR ---
PT DISCHARGED WITH HOMECARE INSTRUCTIONS WITH PRESCRIPTION. ENCOURAGED PT TO FOLLOW UP WITH PRIMARY CARE DOCTOR, AND TO CONSUME PLENTY OF FLUIDS. PT VERBALIZED UNDERSTANDING. PT DISCHARGED HOME WITH ALL BELONGINGS, AMBULATORY, AND IN STABLE CONDITION.
[2021-06-05 05:24] VITALS: BP_SYST 130
== END 2021-06-05 05:27 | disposition home or self-care (01) ==
LOC: SED 01:43
DX: S11.91XA Laceration without foreign body of unspecified part of neck, initial encounter (principal); N39.0 Urinary tract infection, site not specified; E87.6 Hypokalemia; Z79.899 Other long term (current) drug therapy; W26.0XXA Contact with knife, initial encounter; Y93.89 Activity, other specified; Y92.89 Other specified places as the place of occurrence of the external cause; Y99.8 Other external cause status
CPT/HCPCS: 36415; 80053; 81000; 85025; 99283